=== PATIENT | female | born 1990 | race Caucasian/White ===

== ENCOUNTER → 2016-05-02 | Outpatient (CLI) | payer MEDICAID ==
[~2016-05-02] MED LIST: ALBUTEROL SULFAT3 M2 IH; ALBUTEROL-200 PUFFS/ IH; ALBUTEROL2 PUFFS/17 IN; ALBUTEROL2.5 MG/NEB IN; ALBUTEROL200 PUFFS/ IH; AMOXICOT500 MG PO; AZITHROMYCIN250 MG PO; BENZONATATE100 MG PO; CEFTIN500 MG PO; IRON TABLETS325 MG PO; KEFLEX250 M1 PO; LEVALBUTER0.63 MG/4 IH; MEDROL 4MG. DOSE4 MG PO; MOTRIN 400MG.400 MG PO; NOMEDS XX; PERCOCET1 TAB PO; PHENERGAN 25MG.25 M1 PO; PHENERGAN25 M3 PO; PREDNISONE50 MG PO; PRENATAL PLUS1 TA1 PO; PRENATAL1 TA2 PO; TAMIFLU 75MG CA75 MG PO; VENTOLIN H0.09 MG/Ac IH; XOPENEX0.63 MG/3 IH; ZITHROMAX Z-PA250 M2 PO; ZOFRAN4 MG PO
== END ==
LOC: LAB 13:13
DX: Z34.80 Encounter for supervision of other normal pregnancy, unspecified trimester (principal)

== ENCOUNTER → 2016-05-13 | Outpatient (CLI) | payer MEDICAID ==
--- NOTE | 2016-05-13 17:42 | RADIOLOGY REPORT PS360 ---
US TRANSVAGINAL PREG HISTORY: OB DATES ORDERING PHYSICIAN: Rene Ray MD PATIENT AGE: 25 years COMPARISON: None FINDINGS: An intrauterine gestational sac is present with a pole with a crown-rump length of 0.48cm correlating to gestational age of 6 weeks 2 days. Heart flicker is noted however heart rate not able to be determined. Yolk sac is noted. Small amount of cul-de-sac fluid is present. Blood flow is present both ovaries with follicles noted and a 1 cm cyst on right ovary. IMPRESSION: Live intrauterine gestation at 6 weeks 2 days as described above.
== END ==
LOC: RAD 13:09
DX: O26.841 Uterine size-date discrepancy, first trimester (principal)

== ENCOUNTER 2016-10-03 18:50 | Emergency (ER) | payer MEDICAID ==
[~2016-10-03] VITALS: Ht 147.3 cm; Wt 40.8 kg
[~2016-10-03 18:50] MED LIST changes: +PRENATA1 CTB PO; +ZITHROMAX Z PA250 MG PO
--- OUTSIDE RECORDS SUMMARY | 2016-10-03 19:00 | External Medical Summary Rpt ---
Author Author , Organization [employer] Address Unknown Phone Unavailable Care Team Providers Care Tram Operator Name Role Phone [facility] Unavailable Unavailable [facility]IES BEINEKE, BEINEKE Unavailable Unavailable BEINEKE BREEZY, BEINEKE Unavailable Unavailable BREEZY BESSON PASQUALE, BESSON Unavailable Unavailable PASQUALE SWANSON, SWANSON Unavailable Unavailable [facility] Unavailable Unavailable [facility] Unavailable Unavailable SERVICE, [facility] TOM SANTOS Unavailable Unavailable SANTOS ZACHARIAH, SANTOS Unavailable Unavailable ZACHARIAH SANTOS ZACHARIAH, SANTOS Unavailable Unavailable [facility]ACHARIAH [facility] Un[facility] Unavailable [facility] Unavailable Unavailable [facility] CHARLEY EZIO, CHARLEY Unavailable Unavailable EZIO ARTURO SUNSHINE, Unavailable Unavailable ARTURO SUNSHINE KATHERIN, T, KATHERIN, T Unavailable Unavailable BRANDON STONE PA-C Unavailable Unavailable BRANDON MONTESINOS PA-C YAMEL KOTHARI JORGE, KOTHARI JORGE Unavailable Un[facility] TOMY BOOGIE, TOMY Unavailable Unavailable BOOGIE PLAZA TORI, PLAZA Unavailable Unavailable TORI [facility] Un[facility] Unavailable INC, [facility], Unavailable Unavailable [facility] HOWARD, HOWARD Unavailable Unavailable [facility] Un[facility], [facility] CORBY BIANCA, CORBY Unavailable Unavailable BIANCA NANCY GRE, Unavailable Unavailable NANCY GRE NANCY GRE, Unavailable Unavailable HUGO HICKS, Unavailable Unavailable [facility] KIRKLAND [facility] Un[facility] PICKRONN JR, Unavailable Unavailable PICKLESIMER JR PICKLESIMER JR CHEVY, Unavailable Unavailable PICKLESIMER JR CHEVY PICKLESIMER JR CHEVY, Unavailable Unavailable PICKLESIMER JR CHEVY RENUSCH PANCHITO, RENUSCH Unavailable Unavailable [facility] Unavailable Unavailable [facility]QU[facility], [facility] JACKIE JUNE DO, Unavailable Unavailable JACKIE JUNE DO [facility] Unavailable Unavailable [facility], [facility] WALKER FOR, WALKER Unavailable Unavailable FOR [facility] Unavailable Unavailable DEPT [facility], [facility] DEPT [facility] Unavailable Unavailable DEPT [facility], [facility] DEPT [facility], [facility] Unavailable Unavailable Johan Monge Unavailable Unavailable Johan SAALZAR MD, III, MD [facility], Unavailable Unavailable [facility] LORIE ESPINOZA, Unavailable Unavailable OLRIE ESPINOZA [facility], Unavailable [facility]available [facility], Unavailable Unavailable [facility] Purpose Continuity of Care Document - 04-10-2007 through 2016 Problems Code Diagnosis DOS Provider Status Z3492 ENC 08-19-2016 [facility] UNS 2 TRIMESTER Z36 ENCOUNTER 08-19-2016 [facility] SCREENING OF MOTHER Z3A19 19 WEEKS 08-19-2016 [facility] Z3480 ENC 08-04-2016 [facility] SUPER[facility]ION PHYSICIANS OTH NORMAL GROUP PREG UNS TRIMESTER Z42971 UNSPECIFIED 06-27-2016 [facility] ED N72 INFLAMMATOR 06-27-2016 [facility] DISEASE [facility], OF CERVIX PLLC UTERI O209 HEMORRHAGE 06-27-2016 [facility] IN EARLY [facility], [facility] UNSPECIFIED I80872 INFECTIONS 06-27-2016 [facility] CERVIX IN [facility], PLLC FIRST TRIMESTER Z3A12 12 WEEKS 06-27-2016 [facility] GESTATION [facility], OF PLLC B373 CANDIDIASIS 06-14-2016 [facility] AND VAGINA Z113 ENCOUNTER 06-14-2016 [facility] SCREEN [facility] INFECTIONS SEXL MODE TRANSMISSN Z3481 ENC 06-14-2016 [facility] SUPERVISION LLC OTH NORMAL 1 TRIMESTER J101 FLU D/T OTH 06-04-2016 [facility] ID FLU [facility] VIRUS OTH INC RESP MANIFESTATI ONS Z3401 ENCOUNTER 06-04-2016 [facility] SUPRVISN [facility] NORMAL INC FIRST PREG 1 TRIMESTER X23514 UTERINE 05-13-2016 [facility] SIZE-DATE [facility] DISCREPANCY INC FIRST TRIMESTER Z3491 ENC 05-13-2016 [facility] UNS 1 TRIMESTER Z3A01 LESS THAN 8 05-13-2016 [facility] OF Z3201 ENCOUNTER 05-09-2016 [facility] FOR [facility] GROUP TEST RESULT POSITIVE H6691 OTITIS 02-27-2016 [facility]IA [facility], UNSPECIFIED PLL RIGHT EAR N926 IRREGULAR 12-15-2015 [facility] MENSTRUATIO PHYSICIANS N GROUP UNSPECIFIED G19597 ENCOUNTER 12-15-2015 [facility] INITIAL PHYSICIANS PRESCRIPTIO GROUP N OTH CONTRACEPTI VE F23138 ENCOUNTER 09-03-2015 [facility] INITIAL [facility] PRESCRIPTIO HLTH DEPT N [place] CONTRACEPT PILLS Z3202 ENCOUNTER 09-03-2015 [facility] FOR DISTRICT HLTH DEPT TEST RESULT [place] NEGATIVE G2581 RESTLESS 08-12-2015 [facility] LEGS PHYSICIANS SYNDROME GROUP G84195 MIGRAINE 08-12-2015 [facility] UNS NOT PHYSICIANS INTRACT W/O GROUP STATUS MIGRAINOSUS J309 ALLERGIC 08-12-2015 [facility] RHINITIS PHYSICIANS UNSPECIFIED GROUP Z0000 ENCOUNTER 08-12-2015 [facility] ADULT [facility] MED EXAM INC W/O ABNORMAL FIND J209 ACUTE 07-18-2015 [facility] BRONCHITIS [facility], UNSPECIFIED PLLC R05 COUGH 07-18-2015 [facility] R509 FEVER 07-18-2015 [facility] J323 CHRONIC 03-26-2015 [facility] SPHENOIDAL [facility], SINUSITIS PLLC R079 CHEST PAIN 03-26-2015 [facility] R200 ANESTHESIA 03-26-2015 [facility] R202 PARESTHESIA 03-26-2015 [facility] OF SKIN [facility], [facility] J4521 MILD 02-11-2015 [facility] INTERMITTEN PH[facility]ICIANS, T ASTHMA PLL WITH ACUTE EXACERBATIO N 6264 IRREGULAR 11-26-2014 [facility] MENSTRUAL PHYSICIANS CYCLE GROUP V2509 OTH GENERAL 11-26-2014 [facility] PHYSICIANS CNSL&ADVICE GROUP CONTRACEPT MANAGEMENT 22401 ASTHMA, 11-11-2014 [facility] INC UNSPECIFIED STATUS 9174 FOOT&TOE 11-11-2014 [facility] INSECT BITE [facility]ICIANS, PLLC NONVENOMOUS W/O MENTION INF 9175 FOOT AND 11-11-2014 [facility] TOE INSECT [facility] BITE INC NONVENOMOUS INFECTED V7240 11-05-2014 [facility] EXAMINATION [facility] /TEST INC UNCONFIRMED 3671 MYOPIA 09-04-2014 NANCY GRE 01313 ASTHMA 07-14-2014 [facility] UNSPECIFIED ASSOCIATES [place]ACERBATIO N 94860 SHORTNESS 07-05-2014 [facility] MEDICAL [facility] ASS V2549 SURVEILLANC 04-28-2014 [facility] E OTH PREV PHYSICIANS PRSC GROUP CONTRACEPT METHOD 650 NORMAL 03-19-2014 [facility] DELIVERY PHYSICIANS GROUP 86981 SECOND-DEGR 03-19-2014 [facility] EE PERINEAL [facility] LACERATION INC WITH DELIVERY V270 OUTCOME OF 03-19-2014 [facility] DELIVERY PHYSICIANS SINGLE GROUP LIVEBORN 4019 UNSPECIFIED 03-18-2014 [facility] HYPERTENSIO [place] N V221 SUPERVISION 03-17-2014 [facility] OF OTHER PHYSICIANS NORMAL GROUP 95972 THREATENED 02-25-2014 [facility] PREMATURE PHYSICIANS LABOR GROUP ANTEPARTUM 86850 POOR 02-17-2014 [facility] GROWTH MGMT PHYSICIANS MOTH GROUP ANTPRTM COND/COMP 18486 OLIGOHYDRAM 02-17-2014 [facility] NIOS, PHYSICIANS ANTEPARTUM GROUP 4660 ACUTE 01-27-2014 [place] [facility] 7242 LUMBAGO 01-27-2014 [facility] 7851 PALPITATION 01-27-2014 [facility] 7862 COUGH 01-27-2014 [facility] 77867 CHEST PAIN 01-27-2014 [facility] V222 01-27-2014 [facility] HOS[facility] INCIDENTAL INC V283 ENCOUNTER 01-01-2014 TOM SONI ROUTINE SCREEN MALFORMATIO N ULTRASONIC 51896 OTHER 10-09-2013 TOM ZACHARIAH SPECIFED COMPLICATIO N ANTEPARTUM V7242 09-26-2013 TOM SONI EXAMINATION OR TEST POSITIVE RESULT V745 SCREENING 09-26-2013 [facility] EXAMINATION [facility] FOR VENEREAL DISEASE 17775 OTHER 07-27-2013 [place] [facility] FATIGUE INC V2689 OTHER 07-24-2013 [facility] SPECIFIED DISTRICT PROCREATIVE [facility] DEPT MANAGEMENT [place] 276.51 276.51 05-18-2013 [place] DEHYDRATION [facility] 787.02 787.02 05-18-2013 [place] NAUSEA [facility] 784.0 784.0 04-02-2013 [place] HEADACHE [facility] 789.00 789.00 04-02-2013 [place] ABDOMINAL [facility] UNSPECIFIED SITE 92662 UNSPECIFIED 12-17-2011 [facility]ST[facility] N 4659 ACUTE URIS 11-18-2007 [facility] UNSPECIFIED HOSPITAL SITE 7806 FEVER & OTH 11-18-2007 [facility] EMERGENCY PHYSIOLOGIC PHYS INC DISTURBANCE S TEMP REG 54741 WHEEZING 11-18-2007 [facility] N EMERGENCY PHYS INC 462 ACUTE 08-06-2007 [facility] PHARYNGITIS MEDICAL CLINIC 81201 PAIN IN 06-14-2007 [facility] JOINT, MEDICAL SHOULDER CLINIC REGION 7291 UNSPECIFIED 06-14-2007 [facility] MYOSITIS 60650 CONTUSION 06-14-2007 [facility] MULTIPLE [facility] SITES CLINIC SHOULDER&UP PER ARM 062 MOSQUITO-PAO 04-30-2007 [facility] RNE VIRAL MEDICAL ENCEPHALITI CLINIC S 4619 ACUTE 04-30-2007 [facility] SINUSITIS, MEDICAL UNSPECIFIED CLINIC 7821 RASH AND 04-10-2007 [facility] OTHER MEDICAL NONSPECIFIC CLINIC SKIN ERUPTION 94829 PAINFUL 04-10-2007 [facility] RESPIRATION MEDICAL CLINIC Allergies, Adverse Reactions, Alerts Type Food Allergy Adverse Reaction to Substance Substance Reaction Severity Watermelon S-DIFF. BREATHING Severe Clinical Alert Notifications Alert Asthma: no influenza vaccine in the last 365 days Medications Na ND Rx Da Fi Fi Am Da Di Ph RX Ph St me C No te ll ll ou ys ag ar # ys at rm s nt no ma ic us Or Da si cy ia de te s n re d DU 00 05 06 13 30 00 RI Ac LE 08 -3 -2 .0 00 TE ti RA 57 1- 3- 00 01 ve 20 20 20 18 AI 10 60 17 17 59 D 0 1 36 PH MC AR G/ MA 5 CY MC G #3 IN 93 REYNOLDS 8 LE R ME 00 05 06 21 6 00 RI Ac TH 78 -2 -2 .0 00 TE ti YL 15 6- 3- 00 01 ve OR 02 20 20 18 AI ED 20 17 17 55 D NI 7 91 PH SO AR LO MA NE CY 4 #3 MG 93 8 DO SE PK AZ 50 05 06 6. 5 00 RI Ac IT 11 -2 -2 00 00 TE ti HR 10 6- 3- 0 01 ve OM 78 20 20 18 AI YC 76 17 17 55 D IN 6 92 PH AR 25 MA 0 CY MG #3 TA 93 BL 8 ET VE 00 05 06 18 16 00 RI Ac NT 17 -3 -2 .0 00 TE ti OL 30 0- 3- 00 01 ve IN 68 20 20 18 AI 22 17 17 59 D HF 0 11 PH A AR 90 MA CY MC G #3 IN 93 REYNOLDS 8 LE R DU 00 03 04 13 30 00 RI Ac LE 08 -3 -2 .0 00 TE ti RA 57 0- 8- 00 01 ve 20 20 20 17 AI 10 60 17 17 78 D 0 1 16 PH MC AR G/ MA 5 CY MC G #3 IN 93 REYNOLDS 8 LE R VE 00 03 04 18 16 00 RI Ac NT 17 -3 -2 .0 00 TE ti OL 30 0- 8- 00 01 ve IN 68 20 20 17 AI 22 17 17 78 D HF 0 17 PH A AR 90 MA CY MC G #3 IN 93 REYNOLDS 8 LE R AL 00 03 04 36 30 00 YO Ac BU 48 -2 -2 0. 00 UR ti TE 79 7- 1- 00 00 ve RO 50 20 20 0 03 PH L 16 17 17 14 AR MCLEOD 0 15 MA L CY 2. 5 LL MG C /[address] OR 65 03 04 14 9 00 RI Ac OM 16 -1 -0 .0 00 TE ti ET 20 5- 7- 00 01 ve REYNOLDS 74 20 20 17 AI ZI 51 17 17 54 D NE 0 53 PH AR 12 MA .5 CY MG #3 93 TA 8 BL ET OS 47 03 03 10 5 00 RI Ac EL 78 -0 -3 .0 00 TE ti TA 10 4- 1- 00 01 ve GA 47 20 20 17 AI 01 17 17 37 D R 3 42 PH PH AR OS MA CY 75 #3 MG 93 8 CA PS UL E OR 00 03 03 15 5 00 RI Ac OM 60 -0 -3 0. 00 TE ti ET 31 6- 1- 00 01 ve REYNOLDS 58 20 20 0 17 AI ZI 55 17 17 38 D NE 8 42 PH -C AR OD MA EI CY NE #3 SY 93 RU 8 P OR 00 02 03 14 10 00 RI Ac OM 60 -0 -0 .0 00 TE ti ET 35 3- 3- 00 01 ve REYNOLDS 43 20 20 16 AI ZI 82 17 17 96 D NE 1 24 PH AR 25 MA CY MG #3 TA 93 BL 8 ET DU 00 02 02 13 30 00 RI Ac LE 08 -0 -2 .0 00 TE ti RA 57 1- 4- 00 01 ve 20 20 20 16 AI 10 60 17 17 86 D 0 1 55 PH MC AR G/ MA 5 CY MC G #3 IN 93 REYNOLDS 8 LE R VE 00 12 01 18 16 00 RI Ac NT 17 -2 -2 .0 00 TE ti OL 30 8- 7- 00 01 ve IN 68 20 20 16 AI 22 16 17 42 D HF 0 87 PH A AR 90 MA CY MC G #3 IN 93 REYNOLDS 8 LE R 00 08 09 00 30 30 WI 23 No Ac 00 -2 -1 .0 LS 96 t ti 60 6- 1- 00 ON 69 Av ve 11 20 20 ai [address] la 1 UG bl e IN C 63 08 08 00 24 6 WA 69 TH Ac 30 -1 -2 .0 L- 56 OM ti 40 7- 8- 00 MA 99 ve 65 20 20 RT 8 70 08 08 II 1 PH I AR ARTURO MA HN CY H #4 93 AZ 59 08 08 00 6. 5 WI 23 No Ac IT 76 -2 -2 00 LS 90 t ti HR 23 0- 8- 0 ON 61 Av ve OM 06 20 20 ai YC [address] la IN 1 UG bl e 25 IN 0 C MG TA BL ET 17 08 08 00 17 25 WI 23 No Ac 27 -1 -2 .0 LS 82 t ti 00 2- 8- 00 ON 55 Av ve 72 20 20 ai [address] la 1 UG bl e IN C 63 08 08 00 40 20 WI 23 No Ac 82 -2 -2 .0 LS 90 t ti 40 0- 8- 00 ON 63 Av ve 00 20 20 ai [address] la 0 UG bl e IN C OR 00 08 08 00 21 6 WA 69 TH Ac ED 60 -1 -2 .0 L- 57 OM ti NI 35 2- 8- 00 MA 00 ve SO 33 20 20 RT 1 NE 71 08 08 II 5 5 PH I AR ARTURO MG MA HN CY H TA BL #4 ET 93 OR 50 08 08 00 12 4 WI 23 No Ac OM 38 -2 -2 0. LS 90 t ti ET 30 0- 8- 00 ON 64 Av ve REYNOLDS 80 20 20 0 ai ZI [address] la NE 6 UG bl -C e OD IN EI C NE SY RU P 17 05 05 00 17 25 WI 22 No Ac 27 -0 -2 .0 LS 83 t ti 00 5- 2- 00 ON 28 Av ve 72 20 20 ai [address] la 1 UG bl e IN C [place] 59 05 05 00 6. 5 WI 22 No Ac IT 76 -0 -2 00 LS 83 t ti HR 23 5- 2- 0 ON 29 Av ve OM 06 20 20 ai YC [address] mendez IN 1 UG bl e 25 IN 0 C MG TA BL ET [place] 59 01 03 00 6. 5 WI 21 No Ac IT 76 -2 -2 00 LS 75 t ti HR 23 8- 6- 0 ON 96 Av ve OM 06 20 20 ai YC [address] mendez IN 1 UG bl e 25 IN 0 C MG TA BL ET Vital Signs 05-18-2013 11:49 Name Value Interpretat Reference Comment ion Range Body 98.7 [degF] Temperature BP 58 mm[Hg] Diastolic BP Systolic 108 mm[Hg] Heart 88 /min Rate/Pulse O2% 99 % Respiratory 20 /min Rate 04-02-2013 12:37 Name Value Interpretat Reference Comment ion Range BP 70 mm[Hg] Diastolic BP Systolic 111 mm[Hg] Heart 90 /min Rate/Pulse O2% 99 % Respiratory 20 /min Rate Results Labs Lab Lab Date Result Refere Interp Status Commen Order Detail nces retati t Range on B-HCG Ur Ql (05-18-2013 11:15) B-HCG NEGATIV NEG complet Ur Ql 014 E ed 11:15 URINALYSIS/COMPLETE (05-18-2013 11:15) URINE YELLOW YELLOW complet COLOR 014 ed 11:15 URINE CLOUDY CLEAR complet APPEARA 014 ed NCE 11:15 URINE NEGATIV NEG complet GLUCOSE 014 E ed - 11:15 DIPSTIC K URINE NEGATIV NEG complet BILIRUB 014 E ed IN - 11:15 DIPSTIC K URINE NEGATIV NEG complet KETONE 014 E mg/dL ed 11:15 URINE 05-18-2 Greater 1.005-1 complet SPECIFI 014 than .030 ed C 11:15 or GRAVITY equal to 1.030 URINE NEGATIV NEG complet BLOOD 014 E ed 11:15 URINE 05-18-2 6.0 UNK 5.0-8.5 complet PH 014 ed 11:15 URINE NEGATIV NEG complet PROTEIN 014 E mg/dL ed - 11:15 DIPSTIC K URINE 05-18-2 0.2 NEG complet UROBILI 014 E.U./dL ed NOGEN - 11:15 DIPSTIC K URINE NEGATIV NEG complet NITRATE 014 E ed - 11:15 DIPSTIC K URINE TRACE NEG complet LEUK 014 ed ESTERAS 11:15 E URINE 10-20 O complet WBC 014 wbc/hpf ed 11:15 URINE 20-50 0-5 complet SQUAMOU 014 #/hpf ed S CELLS 11:15 URINE 2+ O complet BACTERI 014 ed A 11:15 B-HCG Ur Ql (04-02-2013 12:02) B-HCG NEGATIV NEG complet Ur Ql 013 E ed 12:02 URINALYSIS/COMPLETE (04-02-2013 12:02) URINE YELLOW YELLOW complet COLOR 013 ed 12:02 URINE SL CLEAR complet APPEARA 013 CLOUDY ed NCE 12:02 URINE NEGATIV NEG complet GLUCOSE 013 E ed - 12:02 DIPSTIC K URINE NEGATIV NEG complet BILIRUB 013 E ed IN - 12:02 DIPSTIC K URINE NEGATIV NEG complet KETONE 013 E mg/dL ed 12:02 URINE 1.025 1.005-1 complet SPECIFI 013 UNK .030 ed C 12:02 GRAVITY URINE NEGATIV NEG complet BLOOD 013 E ed 12:02 URINE 6.0 UNK 5.0-8.5 complet PH 013 ed 12:02 URINE NEGATIV NEG complet PROTEIN 013 E mg/dL ed - 12:02 DIPSTIC K URINE 0.2 NEG complet UROBILI 013 E.U./dL ed NOGEN - 12:02 DIPSTIC K URINE NEGATIV NEG complet NITRATE 013 E ed - 12:02 DIPSTIC K URINE 1+ NEG complet LEUK 013 ed ESTERAS 12:02 E URINE 04-02- 3-5 0 complet RBC 013 rbc/hpf ed 12:02 URINE 04-02- 10-20 O complet WBC 013 wbc/hpf ed 12:02 URINE 10-20 0-5 complet SQUAMOU 013 #/hpf ed S CELLS 12:02 URINE 2+ O complet BACTERI 013 ed A 12:02 Procedures Procedure DOS Code Location Performer Comment [place] PREG 88896 [facility] W/DETAIL INC INC GARCIA 1ST GESTATION US PREG 11433 TRAVIS [facility] UTERUS 7 MEDICAL AFTER 1ST IMAGING TRIMEST ASS GESTATION THER 02486 [facility] PROPH/DX 7 [facility] NJX IV INC INC PUSH SINGLE/1S T SBST/DRUG US PREG 64014 [facility] UTERUS 7 [facility] REAL TIME INC INC W/IMAGE DCMTN TRANSVAG GONADOTRO 55266 [facility] PIN 7 [facility] CHORIONIC INC INC QUANTITAT DIEUDONNE ADMN SET A7003 YOUR YOUR SM VOL 7 PHARMACY PHARMACY NONFILTHE [facility] PNEUMAT NEBULIZR DISPBL URNLS DIP 58644 [facility] STICK/TAB INC INC LET REAGENT AUTO MICROSCOP Y TISS JEFF 28984 [facility] SLIDE 7 [facility] SAMPS INC INC SKN/HR/NL S FNGI/ECTO PARASIT SMR PRIM 77896 [facility] SRC WET 7 [facility] MOUNT INC INC NFCT AGT CULTURE 13659 [facility] BACTERIAL 7 [facility] INC INC QUANTTATI VE COLONY COUNT URINE URINE 02719 [facility] 7 [facility] TEST INC INC VISUAL COLOR CMPRSN METHS BASIC 11040 [facility] METABOLIC 7 [facility] PANEL INC INC CALCIUM TOTAL UNCLASSIF J3490 [facility] IED DRUGS 7 [facility] INC INC CYTP C/V 42603 [facility] AUTO THIN 7 LLC ER JR LYR PREPJ SCR MNL RESCR PHYS IADNA 05485 [facility] CHLAMYDIA 7 LLC ER JR TRACHOMAT IS AMPLIFIED PROBE TQ IADNA 59946 [facility] NEISSERIA 7 LLC ER JR GONORRHOE AE AMPLIFIED PROBE TQ IAADIADOO 78890 [facility] [place]FLUENZA [place] PREG 25525 [facility] UTERUS 7 [facility] REAL TIME INC INC W/IMAGE DCMTN TRANSVAG URINE 00590 [facility] SANTOS 7 PHYSICIAN TEST S GROUP VISUAL COLOR CMPRSN METHS GONADOTRO 21070 [facility] PIN 7 [facility] CHORIONIC INC INC QUANTITAT DIEUDONNE COLLECTIO 72109 [facility] N VENOUS 7 [facility] BLOOD INC INC VENIPUNCT URE ADMN SET A7003 YOUR YOUR SM VOL 6 PHARMACY PHARMACY NONFILTR [facility] PNEUMAT NEBULIZR DISPBL ADMN SET A7003 YOUR YOUR SM VOL 6 [facility] PNEUMAT NEBULIZR DISPBL ADMN SET A7003 YOUR PLAZA SM VOL 6 PHARMACY TORI NONFIL LLC PNEUMAT NEBULIZR DISPBL ADMN SET A7003 YOUR YOUR SM VOL 6 [facility] PNEUMAT NEBULIZR DISPBL URINE 44990 [facility] TEST TH DEPT [facility] DEPT VISUAL [place] COLOR CMPRSN METHS CONTRACEP S4993 [facility] PILL[facility] FOR HLTH DEPT HLTH DEPT [place] CONTROL CONTRACEP A4267 [facility] T[facility] SUPPLY TH DEPT TH DEPT CONDOM [place] MALE EACH CONTRACEP A4269 [facility] SUPPLY TH DEPT TH DEPT SPERMICID [place] [address] [facility] THYROID 6 [facility] STIMULATI [place] [address] [facility] FREE 6 [facility] [place] [address] [facility] FOLIC 6 [facility] ACID INC INC SERUM COMPREHEN 17539 [facility] SIVE 6 [facility] METABOLIC INC INC PANEL BLOOD 03892 [facility] COUNT 6 [facility] COMPLETE INC INC AUTO&AUTO DIFRNTL WBC ADMN SET A7003 YOUR YOUR SM VOL 6 PHARMACY PHARMACY [facility] PNEUMAT NEBULIZR DISPBL CYANOCOBA 02222 [facility] BRAYDEN 6 [facility] VITAMIN INC INC B-12 NEBULIZER E0570 GIANCARLO MONDRAGON WITH 6 HOME HOME COMPRESSO MEDICAL MEDICAL R EQUIPME EQUIPME IAADI 39549 [facility] INFFLUENZ 6 [facility] A A VIRUS INC INC IAADI 24699 [facility] INFLUENZA 6 [facility] B VIRUS INC INC CUL BACT 99411 [facility] XCPT 6 [facility] URINE INC INC BLOOD/STO OL AEROBIC ISOL UNCLASSIF J3490 [facility] IED DRUGS 6 [place] [address] [facility] STREPTOCO 6 [facility] CCUS INC INC GROUP A RADIOLOGI 70527 [facility] C EXAM 6 MEDICAL CHEST 2 IMAGING VIEWS ASS FRONTAL&L ATERAL CREATINE 99808 [facility] KINASE MB 5 [facility] [place] [address] [facility] TROPONIN 5 [facility] QUANTITAT INC INC DIEUDONNE URNLS DIP 18947 [facility] 5 [facility] STICK/TAB INC INC LET REAGENT AUTO MICROSCOP Y COMPREHEN 15769 [facility] SIVE 5 [facility] METABOLIC INC INC PANEL ECG 58731 [facility] ROUTINE 5 [facility] ECG INC INC W/LEAST 12 LDS TRCG ONLY W/O I&R CREATINE 13934 [facility] KINASE [facility] TOTAL INC INC URINE 36795 [facility] TEST INC INC VISUAL COLOR CMPRSN METHS AMB [id number] [facility] SERVICE 5 [facility]ANCE AMBULANCE ALS SERVICE SERVICE [place] [address] [place] [facility] HEAD/BRAI 5 MEDICAL SUNSH[facility] N W/O IMAGING CONTRAST ASS MATERIAL BLOOD 43272 [facility] COUNT 5 [facility] COMPLETE INC INC AUTO&AUTO DIFRNTL WBC ECG 05990 [facility] ROUTINE 5 [facility] W/LEAST P 12 LDS I&R ONLY [facility]25 [facility] PER SERVICE SERVICE STATUTE MILE RADIOLOGI 98999 [place] [facility] C EXAM 5 [facility] CHEST 2 IMAGING VIEWS ASS FRONTAL&L ATERAL THER 85503 [facility] PROPH/DX 5 [facility] NJX IV INC INC PUSH SINGLE/1S T SBST/DRUG FIBRIN 73417 [facility] DGRADJ 5 [facility] PRODUCTS INC INC D-DIMER QUAL/SEMI JASPREET PRESSURIZ 17895 [facility] ED/NONPRE 5 [facility] SSURIZED INC INC INHALATIO N TREATMENT BLOOD 74004 [facility] COUNT 5 [facility] COMPLETE INC INC AUTO&AUTO DIFRNTL WBC COMPREHEN 93493 [facility] SIVE 5 [facility] METABOLIC INC INC PANEL URINE 35612 [facility] 5 PHYSICIAN [place] TEST S GROUP VISUAL COLOR CMPRSN METHS GONADOTRO 20543 [facility] PIN 5 [facility] CHORIONIC INC INC QUALITATI VE COLLECTIO 57870 [facility] [place] VENOUS 5 [facility] BLOOD INC INC VENIPUNCT URE OPHTH 70469 [facility] 5 GRE GRE XM&EVAL COMPRE NEW PT 1/> VST BASIC 49566 [facility] METABOLIC 5 [facility] PANEL INC INC CALCIUM TOTAL OBSERVATI 21263 [facility] ON CARE 5 CARE EZIO DISCHARGE ASSOCIATE S MANAGEMEN T NONINVASI 79706 [facility] VE 5 [facility] EAR/PULSE INC INC OXIMETRY SINGLE DETER PRESSURIZ 42819 [facility] ED/NONPRE 5 [facility] SSURIZED INC INC INHALATIO N TREATMENT BLOOD 81313 [facility] COUNT 5 [facility] COMPLETE INC INC AUTO&AUTO DIFRNTL WBC UNCLASSIF J3490 [facility] IED DRUGS 5 [facility] INC INC COLLECTIO 76114 [facility] V[facility] N VENOUS 5 [facility] BLOOD INC INC VENIPUNCT URE HOSPITAL G0378 [facility] OBSERVATI 5 [facility] ON INC INC SERVICE PER [facility] G0378 [facility] V[facility] OBSERVATI 5 [facility] ON INC INC SERVICE PER HOUR INITIAL 10193 [facility] [place] OBSERVATI 5 CARE EZIO ON ASSOCIATE CARE/DAY S 50 MINUTES COLLECTIO 05603 [facility] N VENOUS 5 [facility] BLOOD INC INC VENIPUNCT URE INJECTION [id number] [facility] ONDANSETR INC INC ON HCL PER 1 MG UNCLASSIF [id number] [facility] IED DRUGS 5 [facility] INC INC BLOOD 76565 [facility] COUNT 5 [facility] COMPLETE INC INC AUTO&AUTO DIFRNTL WBC CUL BACT 06587 [facility] XCPT 5 [facility] URINE INC INC BLOOD/STO OL AEROBIC ISOL PRESSURIZ 17059 [facility] ED/NONPRE 5 [facility] SSURIZED INC INC INHALATIO N TREATMENT SMR PRIM 18977 [facility] VINSON SRC 5 [facility] GRAM/GIEM INC INC SA STAIN BCT FUNGI/DHAVAL L NONINVASI 08488 [facility] VE 5 [facility] EAR/PULSE INC INC OXIMETRY SINGLE DETER THERAPEUT 70466 [facility] IC 5 [facility] INJECTION INC INC IV PUSH EACH NEW DRUG INJECTION [id number] [facility] 5 [facility] AZITHROMY INC INC MATT 500 MG BASIC 14395 [facility] VINSON METABOLIC 5 [facility] [place] [address] [facility] VINSON INFUSION 5 [facility] THERAPY/P INC INC ROPHYLAXI S /DX 1ST TO 1 HR AMB A0427 [facility] SERVICE 5 AMBULANCE AMBULANCE ALS SERVICE SERVICE EMERGENCY TRANSPORT LEVEL 1 CULTURE 00584 [facility] BACTERIAL 5 [facility] BLOOD INC INC AEROBIC W/ID ISOLATES PRESSURIZ 57317 [facility] VINSON ED/NONPRE 5 [facility] SSURIZED INC INC INHALATIO N TREATMENT BLOOD 17266 [facility] VIN[facility] COUNT 5 [facility] COMPLETE INC INC AUTO&AUTO DIFRNTL WBC GONADOTRO 92164 [facility] PIN 5 [facility] CHORIONIC INC INC QUALITATI VE UNCLASSIF J3490 [facility] V[facility] IED DRUGS 5 [facility] INC INC GROUND A0425 MALLORY TEJADA MILEAGE 5 AMBULANCE AMBULANCE PER SERVICE SERVICE STATUTE MILE RADIOLOGI 54180 [facility] C EXAM 5 MEDICAL BREEZY CHEST 2 IMAGING VIEWS ASS FRONTAL&L ATERAL COMPREHEN 18487 [facility]IN[facility] SIVE 5 [facility] METABOLIC INC INC PANEL THERAPEUT 67270 [facility] TOM IC 5 PHYSICIAN [place] PROPHYLAC S GROUP TIC/DX INJECTION SUBQ/IM VAGINAL 53909 [facility] TOM DELIVERY 4 PHYSICIAN ZACHARIA[place] ONLY S GROUP W/POSTPAR FEMI CARE REPAIR OF 7569 [facility] VINSON OTHER 4 [facility] CURRENT INC INC OBSTETRIC LACERATIO N NEURAXIAL 63694 [facility] KOTHARI JORGE LABOR 4 ANESTH ANALG/ANE OF THE S PLND BLUE VAGINAL DELIVERY CUL BACT 68294 COMBINED COMBINED XCPT 4 PHYSICIAN PHYSICIAN URINE S LA S LA BLOOD/STO OL AEROBIC ISOL 98039 [facility] TOM NONSTRESS 4 PHYSICIAN ZACHARIA[place] TEST S GROUP 21476 [facility] TOM BIOPHYSIC 4 PHYSICIAN [place] AL S GROUP PROFILE W/O NON-STRES S TESTING US PREG 90808 [facility] TOM UTERUS 4 PHYSICIAN [place] REAL TIME S GROUP F/U TRNSABDL PER FETUS DOPPLER 38072 [facility] TOM VELOCIMET 4 PHYSICIAN [place] RY S GROUP UMBILICAL ARTERY 01911 [facility] SANTOS BIOPHYSIC 4 PHYSICIAN [place]ACH[place]IA[place] AL S GROUP PROFILE W/O NON-STRES S TESTING US PREG 81541 [facility] TOM UTERUS 4 PHYSICIAN [place]ACH[place]IA[place] REAL TIME S GROUP F/U TRNSABDL PER FETUS DOPPLER 81821 [facility] TOM VELOCIMET 4 PHYSICIAN [place] RY S GROUP UMBILICAL ARTERY THERAPEUT 54369 [facility] IC 4 [facility] PROPHYLAC INC INC TIC/DX INJECTION SUBQ/IM 47250 TOM SANTOS NONSTRESS 4 ZACH[facility] ZACHARIA[facility] TEST URNLS DIP 39077 [facility] STICK/TAB INC [place] [address] [facility] VINSON INFUSION 4 [facility] THERAPY/P INC INC ROPHYLAXI S /DX 1ST TO 1 HR CULTURE 75050 [facility] JONES BACTERIAL 4 [facility] LABORATOR INC IES QUANTTATI VE COLONY COUNT URINE ECHO 18425 [facility] VINSON TTHRC R-T 4 [facility] 2D INC INC W/WOM-MOD E COMPL SPEC&COLR D PRESSURIZ 34156 [facility]SON ED/NONPRE 4 [facility] SSURIZED INC INC INHALATIO N TREATMENT RADIOLOGI 76518 [facility] C EXAM 4 [facility] CHEST 2 INC INC VIEWS FRONTAL&L ATERAL BLOOD 75992 [facility] COUNT 4 [facility] COMPLETE INC INC AUTO&AUTO DIFRNTL WBC FIBRIN 81521 [facility] DGRADJ 4 [facility] PRODUCTS INC INC D-DIMER QUAL/SEMI JASPREET COMPREHEN 92434 [facility] SIVE 4 [facility] METABOLIC INC INC PANEL US PREG 05495 TOM SANTOS UTERUS 4 [place] ZACHAR[place] AFTER 1ST TRIMEST GESTATION US PREG 67105 TOM SANTOS UTERUS 4 [place] AFTER 1ST TRIMEST GESTATION US PREG 60476 TOM SANTOS UTERUS 4 [facility] ZACH[place]IA[place] REAL TIME W/IMAGE DCMTN TRANSVAG URINE 69383 SANTOS SANTOS 4 [facility] ZACH[place] TEST VISUAL COLOR CMPRSN METHS IADNA 12340 PICKLESIM PICKLESIM NEISSERIA 4 ER JR CHEVY ER JR CHEVY GONORRHOE AE AMPLIFIED PROBE TQ CYTP C/V 14787 PICKLESIM PICKLESIM AUTO THIN 4 ER JR CHEVY ER JR CHEVY LYR PREPJ SCR MNL RESCR PHYS IADNA 56747 PICKLESIM PICKLESIM CHLAMYDIA 4 ER JR CHEVY ER JR CHEVY TRACHOMAT IS AMPLIFIED PROBE TQ URINE 85634 [facility] TEST INC INC VISUAL COLOR CMPRSN METHS URNLS DIP 94432 [facility] VINSON 4 [facility] STICK/TAB INC INC LET REAGENT AUTO MICROSCOP Y BLOOD 56749 [facility] COUNT 4 [facility] COMPLETE INC INC AUTO&AUTO DIFRNTL WBC PRESSURIZ 51905 [facility] VINSON ED/NONPRE 4 [facility] SSURIZED INC INC INHALATIO N TREATMENT THERAPEUT 80656 [facility]INSON IC 4 [facility] INJECTION INC [place] [address] [facility] VINSON INFUSION 4 [facility] THERAPY/P INC INC ROPHYLAXI S /DX 1ST TO 1 HR GONADOTRO 60387 [facility]INSON PIN 4 [facility] CHORIONIC INC INC QUANTITAT DIEUDONNE COMPREHEN 43511 [facility] VINSON SIVE 4 [facility] METABOLIC INC INC PANEL INJECTION J2405 [facility] VINSON 4 [facility] ONDANSETR INC INC ON HCL PER 1 MG CONTRACEP A4267 [facility] SUPPLY TH DEPT TH DEPT [place]DOM [place] URINE 49061 [facility] TEST TH DEPT HLTH DEPT VISUAL [place] COLOR CMPRSN METHS IAADIADOO 49854 OG ESPINOZA, 8 [facility] A Encounters Encounter Start End Date Code Location Performer Type Date HOSPITAL AL[facility]SON Becerra 7 [facility] OUTPATIEN INC T OFFICE 56994 [facility] SANTOS OUTPATIEN 7 7 PHYSICIAN T VISIT S GROUP 15 MINUTES OFFICE 22202 [facility] SANTOS OUTPATIEN 7 7 PHYSICIAN T VISIT S GROUP 15 MINUTES EMERGENCY 89569 JOSESITO HOWARD DEPT 7 7 PHYSICIAN VISIT S, [facility] HIGH SEVERITY& THREAT [facility] ALISSON - 7 7 [facility] OUTPATIEN INC T OFFICE 85396 [facility] SANTOS OUTPATIEN 7 7 PHYSICIAN T VISIT S GROUP 15 MINUTES OFFICE 67709 [facility] OUTPATIEN 7 7 [facility] T VISIT 5 INC MINUTES HOSPITAL [facility] - 7 7 [facility] OUTPATIEN INC T [facility] - 7 7 [facility] OUTPATIEN INC T OFFICE 01994 [facility] SANTOS OUTPATIEN 7 7 PHYSICIAN T VISIT S GROUP 25 MINUTES HOSPITAL [facility] - 7 7 [facility] OUTPATIEN INC T EMERGENCY 80868 [facility] 6 6 [facility] DEPARTMEN INC T VISIT LIMITED/M [facility] ALISSON - 6 6 [facility] OUTPATIEN INC T EMERGENCY 75577 JOSESITO MOLINA 6 6 PHYSICIAN PANCHITO DEPARTMEN S, [facility] T VISIT MODERATE SEVERITY OFFICE 79323 [facility] SANTOS OUTPATIEN 6 6 PHYSICIAN ZACHARIAH T VISIT S GROUP 25 MINUTES OFFICE 52235 [facility] T VISIT [facility] DEPT [facility] DEPT [address] [facility] ALISSON - 6 6 [facility] OUTPATIEN INC T OFFICE 62751 [facility] BRANDON OUTPATIEN 6 6 PHYSICIAN STONE T NEW 30 S GROUP PA-Radha YAMEL MINUTES EMERGENCY 78647 [facility] 6 6 [facility] DEPARTMEN INC T VISIT LOW/MODER SEVERITY EMERGENCY 73102 JOSESITO MOLINA 6 6 PHYSICIAN PANCHITO DOE S, [facility] T VISIT MODERATE SEVERITY HOSPITAL AL[facility] - 6 6 [facility] OUTPATIEN INC T HOSPITAL [facility] - 5 5 [facility] OUTPATIEN INC T EMERGENCY 04152 [facility] 5 [facility] T VISIT HIGH/URGE NT SEVERITY EMERGENCY 30291 JOSESITO HUITRON DEPT 5 5 PHYSICIAN BOOGIE VISIT S, [facility] HIGH SEVERITY& THREAT FUN EMERGENCY 21700 JOSESITO CLEMONS DEPT 5 5 PHYSICIAN FOR VISIT S, [facility] HIGH SEVERITY& THREAT FUNJ EMERGENCY 66830 [facility] 5 5 [facility] T VISIT MODERATE SEVERITY HOSPITAL [facility] - 5 5 [facility] OUTPATIEN [facility] T OFFICE 33491 [facility] 5 5 PHYSICIAN ZACHARIAH T VISIT S GROUP 15 MINUTES HOSPITAL AL[facility] - 5 5 [facility] OUTPATIEN [facility] T EMERGENCY 66792 [facility] 5 5 [facility] T VISIT LOW/MODER SEVERITY EMERGENCY 19375 JOSESITO TAVAREZ 5 5 PHYSICIAN BIANCA DOE S, [facility] T VISIT MODERATE SEVERITY HOSPITAL [facility] - 5 5 [facility] OUTPATIEN [facility] T OFFICE 70004 [facility] 5 5 [facility] T [facility]ISIT ASSOCIATE 15 S MINUTES EMERGENCY 22316 [facility] 5 5 [facility] T VISIT MODERATE SEVERITY HOSPITAL [facility] - 5 5 [facility] OUTPATIEN [facility] T EMERGENCY 51701 [facility] HUITRON 5 5 [facility] T VISIT P HIGH/URGE NT SEVERITY HOSPITAL [facility] - 4 4 [facility] INPATIENT INC OFFICE 81280 [facility] SANTOS OUTPATIEN 4 4 PHYSICIAN ZACHARIAH T VISIT S GROUP 15 MINUTES OFFICE 75014 [facility] SANTOS OUTPATIEN 4 4 PHYSICIAN [place]ACH[place] T VISIT S GROUP 15 MINUTES OFFICE 31796 [facility] TOM OUTPATIEN 4 4 PHYSICIAN [place]IA[place] T VISIT S GROUP 15 MINUTES OFFICE 28038 [facility] SANTOS OUTPATIEN 4 4 PHYSICIAN [place]ACH[place]IA[place] T VISIT S GROUP 15 MINUTES HOSPITAL [facility] - 4 4 [facility] OUTPATIEN INC T HOSPITAL [facility] - 4 4 [facility] OUTPATIEN INC T OFFICE 73004 TOM SANTOS OUTPATIEN 4 4 [facility] ZACHARIA[facility] T VISIT 15 MINUTES EMERGENCY 05665 [facility] 4 4 [facility] DEPARTMEN INC T VISIT LOW/MODER SEVERITY EMERGENCY 30437 [facility] DEPT 4 4 ARUN VISIT EMERGENCY HIGH PHYS SEVERITY& THREAT [facility] ALISSON - 4 4 [facility] OUTPATIEN INC T OFFICE 13457 TOM SANTOS OUTPATIEN 4 4 [facility] ZACH[facility] T VISIT 15 MINUTES OFFICE 58456 TOM SANTOS OUTPATIEN 4 4 [facility] T VISIT 25 MINUTES EMERGENCY 49808 [facility] 4 4 [facility] DEPARTMEN INC T VISIT MODERATE SEVERITY HOSPITAL [facility] - 4 4 [facility] OUTPATIEN INC T OFFICE 13424 [facility] 4 4 [facility] T [facility] 20 [facility] DEPT TH DEPT MINUTES [facility] Emergency MIKE WATKINS DO (ER) 4 11:18 4 11:50 [facility] Emergency MIKE Monge (ER) 3 12:28 3 12:38 [facility] - 3 3 [facility] INPATIENT INC EMERGENCY 20646 [facility] 2 2 [facility] T [facility]ISIT LIMITED/M [facility] ALISSON - 2 2 [facility] OUTPATIEN [facility] T OFFICE 57135 THEA PATEL 8 8 [facility] T [facility]ISIT CLINIC 25 MINUTES HOSPITAL [facility] - 8 8 [facility] T EMERGENCY 31064 [facility] 8 8 [facility] T VISIT LOW/MODER SEVERITY EMERGENCY 79552 [facility] 8 8 [facility] EMERGENCY T VISIT PHYS INC MODERATE SEVERITY OFFICE 88694 [facility] PATEL 8 8 [facility] 15 MINUTES OFFICE 25835 [facility] PATEL 8 8 [facility] 15 MINUTES OFFICE 04208 [facility] PATEL 8 8 [facility] 15 MINUTES OFFICE 61507 THEA TIM 8 8 [facility] T VISIT CLINIC 15 MINUTES
--- OUTSIDE RECORDS SUMMARY | 2016-10-03 19:00 | External Medical Summary Rpt ---
Author Author , Organization [employer] Address Unknown Phone Unavailable Care Team Providers Care Car Dispatcher Name Role Phone [facility] Unavailable Unavailable [facility] BEINEKE, BEINEKE Unavailable Unavailable [facility] BREEZY, BEINEKE Unavailable Unavailable [facility] BESSON PASQUALE, BESSON Unavailable Unavailable PASQUALE SWANSON, SWANSON Unavailable Unavailable [facility] Unavailable Unavailable [facility] Unavailable Unavailable SERVICE, [facility] TOM SANTOS Unavailable Unavailable [...] Unavailable Unavailable INC, [facility], Unavailable Unavailable [facility] HOWARD, HOWARD Unavailable Unavailable [facility] Un[facility] Unavailable [...] #493 WALK[facility] FOR, WALKER Unavailable Unavailable FOR [facility] Unavailable Unavailable DEPT [facility], [facility] DEPT [facility] Unavailable [facility]available DEPT [facility], [facility] DEPT [facility], [facility] Unavailable Unavailable Johan Monge Unavailable Unavailable Johan SALAZAR MD, III, MD [facility], Unavailable Unavailable [facility] LORIE ESPINOZA, Unavailable Unavailable LORIE ESPINOZA [facility], Unavailable Unavailable [facility], Unavailable Unavailable [facility] Purpose Continuity of Care Document - 04-10-2007 through 2016 Problems Code Diagnosis DOS Provider Status Z3492 ENC 08-19-2016 [facility] UNS 2 TRIMESTER Z36 ENCOUNTER 08-19-2016 [facility] SCREENING OF MOTHER Z3A19 19 WEEKS 08-19-2016 [facility] GESTATION [facility]ICAL OF [facility]ING ASS Z3480 ENC 08-04-2016 [facility] SUPERVISION PHYSICIANS OTH NORMAL GROUP PREG UNS TRIMESTER I43361 UNSPECIFIED 06-27-2016 [facility] ED N72 INFLAMMATOR 06-27-2016 [facility] Y DISEASE [facility], OF CERVIX PLLC UTERI O209 HEMORRHAGE 06-27-2016 [facility] IN EARLY [facility], PLLC UNSPECIFIED D10919 INFECTIONS 06-27-2016 [facility] CERVIX IN PHYSICIANS, PLLC [...] HOSP NORMAL INC FIRST PREG 1 TRIMESTER Q34203 UTERINE 05-13-2016 [facility] SIZE-DATE [facility] DISCREPANCY INC FIRST TRIMESTER Z3491 ENC 05-13-2016 [facility] UNS 1 TRIMESTER Z3A01 LESS THAN 8 05-13-2016 [facility] WEEKS [facility] GESTATION IMAGING ASS OF Z3201 ENCOUNTER 05-09-2016 [facility] FOR [facility]IANS GROUP TEST RESULT POSITIVE H6691 OTITIS 02-27-2016 [facility] MEDIA [facility], UNSPECIFIED PLL RIGHT EAR N926 IRREGULAR 12-15-2015 [facility] MENSTRUATIO PHYSICIANS N GROUP UNSPECIFIED A05288 ENCOUNTER 12-15-2015 [facility] INITIAL PHYSICIANS PRESCRIPTIO GROUP N OTH CONTRACEPTI VE X81559 ENCOUNTER 09-03-2015 [facility] IN[facility]IAL [facility] PRESCRIPTIO HLTH DEPT N [place] CONTRACEPT PILLS Z3202 ENCOUNTER 09-03-2015 [facility] FOR DISTRICT HLTH DEPT TEST RESULT [place] NEGATIVE 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 RESTLESS 08-12-2015 [facility] LEGS PHYSICIANS SYNDROME GROUP G22382 MIGRAINE 08-12-2015 [facility] UNS NOT PHYSICIANS INTRACT W/O GROUP STATUS MIGRAINOSUS J309 ALLERGIC 08-12-2015 [facility] RHINITIS PHYSICIANS UNSPECIFIED GROUP Z0000 ENCOUNTER 08-12-2015 [facility] GEN ADULT [facility] MED EXAM INC W/O ABNORMAL FIND J209 ACUTE 07-18-2015 [facility] BRONCHITIS PHYSICIANS, UNSPECIFIED PLLC R05 COUGH 07-18-2015 [facility] R509 FEVER 07-18-2015 [facility] UNSPECIFIED [facility]ICAL [facility]ING ASS J323 CHRONIC 03-26-2015 [facility] SPHENOIDAL PHYSICIANS, SINUSITIS PLLC R079 CHEST PAIN 03-26-2015 [facility] UNSPECIFIED [facility]ICIANS, [facility] R200 ANESTHESIA 03-26-2015 [facility] OF SKIN MEDICAL IM[facility] ASS R202 PARESTHESIA 03-26-2015 [facility] OF SKIN PHYSICIANS, [facility] J4521 MILD 02-11-2015 [facility] INTERMITTEN PHYSICIANS, T [facility] PLL WITH ACUTE EXACERBATIO N 6264 IRREGULAR 11-26-2014 [facility] MENSTRUAL PHYSICIANS CYCLE GROUP V2509 OTH GENERAL 11-26-2014 [facility] PHYSICIANS CNSL&ADVICE GROUP CONTRACEPT MANAGEMENT 22897 ASTHMA, 11-11-2014 [facility]PEC[facility]IED [facility] , INC UNSPECIFIED STATUS 9174 FOOT&TOE 11-11-2014 [facility] INSECT BITE PHYSICIANS, PLLC NONVENOMOUS W/O MENTION INF 9175 FOOT AND 11-11-2014 [facility] TOE INSECT [facility] BITE INC NONVENOMOUS INFECTED V7240 11-05-2014 [facility] EXAMINATION [facility] /TEST INC UNCONFIRMED 3671 MYOPIA 09-04-2014 [facility] 66870 ASTHMA 07-14-2014 [facility] UNSPECIFIED ASSOCIATES WITH EXACERBATIO N 34092 SHORTNESS 07-05-2014 [facility] MEDICAL IM[facility] ASS V2549 SURVEILLANC 04-28-2014 [facility] E OTH PREV PHYSICIANS PRSC GROUP CONTRACEPT METHOD 650 NORMAL 03-19-2014 [facility] DELIVERY PHYSICIANS GROUP 42755 SECOND-DEGR 03-19-2014 [facility] EE PERINEAL [facility] LACERATION INC WITH DELIVERY V270 OUTCOME OF 03-19-2014 [facility] DELIVERY PHYSICIANS SINGLE GROUP LIVEBORN 4019 UNSPECIFIED 03-18-2014 [facility] ESSENTIAL PHYSICIANS HYPERTENSIO LA N V221 SUPERVISION 03-17-2014 [facility] OF OTHER PHYSICIANS NORMAL GROUP 19762 THREATENED 02-25-2014 [facility] PREMATURE PHYSICIANS LABOR GROUP ANTEPARTUM 72939 POOR 02-17-2014 [facility] GROWTH MGMT PHYSICIANS MOTH GROUP ANTPRTM COND/COMP 07686 OLIGOHYDRAM 02-17-2014 [facility] NIOS, PHYSICIANS ANTEPARTUM GROUP 4660 ACUTE 01-27-2014 [facility] 7242 LUMBAGO 01-27-2014 [facility] 7851 PALPITATION 01-27-2014 [facility] 7862 COUGH 01-27-2014 [facility] 78247 CHEST PAIN 01-27-2014 [facility] V222 01-27-2014 [facility] INCIDENTAL INC V283 ENCOUNTER 01-01-2014 T[facility] SONI ROUTINE SCREEN MALFORMATIO N ULTRASONIC 53751 OTHER 10-09-2013 [facility]OM ZACHARIAH SPECIFED COMPLICATIO N ANTEPARTUM V7242 09-26-2013 [facility] S[facility]I EXAMINATION OR TEST POSITIVE RESULT V745 SCREENING 09-26-2013 [facility] EXAMIN[facility] 24082 OTHER 07-27-2013 [facility] FATIGUE INC V2689 OTHER 07-24-2013 [facility] SPECIFIED DISTRICT PROCREATIVE [facility] DEPT MANAGEMENT [place] 276.51 276.51 05-18-[address] [place] [address] [facility] 787.02 787.02 05-18-2013 [place] NAUSEA [facility] 784.0 784.0 04-02-[address] [place] [address] [facility] 789.00 789.00 04-02-2013 [place] ABDOMINAL [facility] UNSPECIFIED SITE 65873 UNSPECIFIED 12-17-2011 [facility] HOSP CONSTIPATIO INC N 4659 ACUTE URIS 11-18-2007 [facility] UNSPECIFIED HOSPITAL SITE 7806 FEVER & OTH 11-18-2007 [facility] EMERGENCY PHYSIOLOGIC PHYS INC DISTURBANCE S TEMP REG 99988 WHEEZING 11-18-2007 [facility] N EMERGENCY PHYS INC 462 ACUTE 08-06-2007 [facility] PHARYNGITIS MEDICAL CLINIC 16154 PAIN IN 06-14-2007 [facility] JOINT, MEDICAL SHOULDER CLINIC REGION 7291 UNSPECIFIED 06-14-2007 [facility] MYOSIT[facility] 96025 CONTUSION 06-14-2007 [facility] MULTIPLE [facility] SITES CLINIC SHOULDER&UP PER ARM 062 MOSQUITO-PAO 04-30-2007 [facility] RNE VIRAL MEDICAL ENCEPHALITI CLINIC S 4619 ACUTE 04-30-2007 [facility] SINUSITIS, MEDICAL UNSPECIFIED CLINIC 7821 RASH AND 04-10-2007 [facility] OTHER MEDICAL NONSPECIFIC CLINIC SKIN ERUPTION 23763 PAINFUL 04-10-2007 [facility] RESPIRATION MEDICAL CLINIC Allergies, Adverse Reactions, [...] YL 15 6- 3- 00 01 ve TN 02 20 20 18 AI ED 20 [...] 5 CY MC G #3 IN 93 RENYOLDS 8 LE R VE 00 03 04 [...] LL MG C /[address] TN 65 03 04 14 9 00 RI [...] TA 10 4- 1- 00 01 ve NC 47 20 20 17 AI 01 17 17 37 D R 3 42 PH PH AR OS MA CY 75 #3 MG 93 8 CA PS UL E TN 00 03 03 15 5 00 RI Ac OM 60 -0 -3 0. 00 TE ti ET 31 6- 1- 00 01 ve REYNOLDS 58 20 20 0 17 AI ZI 55 17 17 38 D NE 8 42 PH -C AR OD MA EI CY NE #3 SY 93 RU 8 P TN 00 02 03 14 10 00 RI [...] la [address] U[address] e IN C TN 00 08 08 00 21 6 WA 69 TH Ac ED 60 -1 -2 .0 L- 57 OM ti NI 35 2- 8- 00 MA 00 ve SO 33 20 20 RT 1 NE 71 08 08 II 5 5 PH I AR ARTURO MG MA HN CY H TA BL #4 ET 93 TN 50 08 08 00 12 4 WI [...] DOS Code [place] Performer [place] P[place] 51387 [facility] UTERUS 7 [facility] W/DETAIL INC INC GARCIA 1ST GESTATION US PREG 93562 TRAVIS [facility] UTERUS 7 MEDICAL AFTER 1ST IMAGING TRIMEST ASS GESTATION THER 78873 [facility] PROPH/DX 7 [facility] NJX IV INC INC PUSH SINGLE/1S T SBST/DRUG US PREG 84738 [facility] UTERUS 7 [facility] REAL TIME INC INC W/IMAGE DCMTN TRANSVAG GONADOTRO 99297 [facility] PIN 7 [facility] CHORIONIC INC INC QUANTITAT DIEUDONNE ADMN SET A7003 YOUR [facility] SM [facility] 7 [facility]AC[facility] NEBULIZR DISPBL URNLS DIP 31066 [facility] 7 [facility] STICK/TAB INC INC LET REAGENT AUTO MICROSCOP Y TISS JEFF 07351 [facility] SLIDE 7 [facility] SAMPS INC INC SKN/HR/NL S FNGI/ECTO PARASIT SMR PRIM 56333 [facility] SRC WET 7 [facility] MOUNT INC INC NFCT AGT CULTURE 40564 [facility] BACTERIAL 7 [facility] INC INC QUANTTATI VE COLONY COUNT URINE URINE 30336 [facility] 7 [facility] TEST INC INC VISUAL COLOR CMPRSN METHS BASIC 10231 [facility] METABOLIC 7 [facility] PANEL INC INC CALCIUM TOTAL UNCLASSIF J3490 [facility] IED DRUGS 7 [facility] INC INC CYTP C/V 88986 [facility] AUTO THIN 7 LLC ER JR LYR PREPJ SCR MNL RESCR PHYS IADNA 54649 [facility] CHLAMYDIA 7 LLC ER JR TRACHOMAT IS AMPLIFIED PROBE TQ IADNA 22920 [facility], [facility] NEISSERIA 7 LLC ER JR GONORRHOE AE AMPLIFIED PROBE TQ IAADIADOO 37973 [facility] INFLUENZA [place] PREG 44624 [facility] UTERUS 7 [facility] REAL TIME INC INC W/IMAGE DCMTN TRANSVAG URINE 81949 [facility] SANTOS 7 PHYSICIAN TEST S GROUP VISUAL COLOR CMPRSN METHS GONADOTRO 36516 [facility] PIN 7 [facility] CHORIONIC INC INC QUANTITAT DIEUDONNE COLLECTIO 23027 [facility] N VENOUS 7 [facility] BLOOD INC INC VENIPUNCT URE ADMN SET A7003 YOUR YOUR SM VOL 6 PHARMACY PHARMACY NONFILTR [facility] PNEUMAT NEBULIZR DISPBL ADMN SET A7003 [facility]AT NEBULIZR DISPBL ADMN SET A7003 YOUR PLAZA SM VOL 6 PHARMACY TORI NONFIL LLC PNEUMAT NEBULIZR DISPBL ADMN SET A7003 YOUR YOUR SM [facility] 6 [facility] PNEUMAT NEBULIZR DISPBL URINE 39691 [facility] TEST TH DEPT [facility] DEPT VISUAL [place] COLOR CMPRSN METHS CONTRACEP S4993 [facility] DE[facility]TH DEPT [place] CONTROL CONTRACEP A4267 [facility] SUPPLY TH DEPT TH DEPT CONDOM [place] MALE EACH CONTRACEP A4269 [facility] SUPPLY TH DEPT TH DEPT SPERMICID [place] [address] [facility] THYROID 6 [facility] STIMULATI [place] [address] [facility] IVNSON FREE 6 [facility] [place] [address] [facility] FOLIC 6 [facility] ACID INC INC SERUM COMPREHEN 66901 [facility] SIVE 6 [facility] METABOLIC INC INC PANEL BLOOD 68674 [facility] COUNT 6 [facility] COMPLETE INC INC AUTO&AUTO DIFRNTL WBC ADMN SET A7003 YOUR YOUR SM VOL 6 PHARMACY PHARMACY [facility] PNEUMAT NEBULIZR DISPBL CYANOCOBA 09833 [facility] BRAYDEN 6 [facility] VITAMIN INC INC B-12 NEBULIZER E0570 GIANCARLO MONDRAGON WITH 6 HOME HOME COMPRESSO MEDICAL MEDICAL R EQUIPME EQUIPME IAADI 85110 [facility] INFFLUENZ 6 [facility] A A VIRUS INC INC IAADI 84610 [facility] INFLUENZA 6 [facility] B VIRUS INC INC CUL BACT 04563 [facility] XCPT 6 [facility] URINE INC INC BLOOD/STO OL AEROBIC ISOL UNCLASSIF J3490 [facility] IED DRUGS 6 [place] [address] [facility] STREPTOCO 6 [facility] CCUS INC INC GROUP A RADIOLOGI 50347 [facility] C EXAM 6 MEDICAL CHEST 2 IMAGING VIEWS ASS FRONTAL&L ATERAL CREATINE 21484 [facility] KINASE MB 5 [facility] [place] [address] [facility] TROPONIN 5 [facility] QUANTITAT INC INC DIEUDONNE URNLS DIP 06566 [facility] 5 [facility] STICK/TAB INC INC LET REAGENT AUTO MICROSCOP Y COMPREHEN 18364 [facility] SIVE 5 [facility] METABOLIC INC INC PANEL ECG 18283 [facility] ROUTINE 5 [facility] ECG INC INC W/LEAST 12 LDS TRCG ONLY W/O I&R CREATINE 74137 [facility] KINASE 5 [facility] TOTAL INC INC URINE 29398 [facility] 5 [facility] TEST INC INC VISUAL COLOR CMPRSN METHS AMB A0427 [facility] SERVICE 5 AMBULANCE AMBULANCE ALS SERVICE SERV[place] [address] [facility] HEAD/BRAI 5 MEDICAL SUNSHINE N W/O IMAGING CONTRAST ASS MATERIAL BLOOD 30608 [facility] COUNT 5 [facility] COMPLETE INC INC AUTO&AUTO DIFRNTL WBC ECG 12798 [facility] RICH ROUTINE 5 [facility] W/LEAST P 12 LDS I&R ONLY GROUND A0425 [facility] AMBULANCE PER SERVICE SERVICE STATUTE MILE RADIOLOGI 23142 [facility] C EXAM 5 MEDICAL SUNSHINE CHEST 2 IMAGING VIEWS ASS FRONTAL&L ATERAL THER 98624 [facility] PROPH/DX 5 [facility] NJX IV INC INC PUSH SINGLE/1S T SBST/DRUG FIBRIN 10379 [facility] DGRADJ 5 [facility] PRODUCTS INC INC D-DIMER QUAL/SEMI JASPREET PRESSURIZ 56699 [facility] ED/NONPRE 5 [facility] SSURIZED INC INC INHALATIO N TREATMENT BLOOD 19358 [facility] COUNT 5 [facility] COMPLETE INC INC AUTO&AUTO DIFRNTL WBC COMPREHEN 04693 [facility] SIVE 5 [facility] METABOLIC INC INC PANEL URINE 41108 [facility] ZACHARIAH TEST S GROUP VISUAL COLOR CMPRSN METHS GONADOTRO 75398 [facility] PIN 5 [facility] CHORIONIC INC INC QUALITATI VE COLLECTIO 79194 [facility] [place] VENOUS 5 [facility] BLOOD INC INC VENIPUNCT URE OPHTH 02038 [facility] 5 GRE GRE XM&EVAL COMPRE NEW PT 1/> VST BASIC 67307 [facility] METABOLIC 5 [facility] PANEL INC INC CALCIUM TOTAL OBSERVATI 31700 [facility] CHARLEY ON CARE 5 CARE EZIO DISCHARGE ASSOCIATE S MANAGEMEN T NONINVASI 35460 [facility] VE 5 [facility] EAR/PULSE INC INC OXIMETRY SINGLE DETER PRESSURIZ 75883 [facility] ED/NONPRE 5 [facility] SSURIZED INC INC INHALATIO N TREATMENT BLOOD 26355 [facility] COUNT 5 [facility] COMPLETE INC INC AUTO&AUTO DIFRNTL WBC UNCLASSIF J3490 [facility] IED DRUGS 5 [facility] INC INC COLLECTIO 79057 [facility] V[facility] N VENOUS 5 [facility] BLOOD INC INC VENIPUNCT URE HOSPITAL G0378 [facility] OBSERVATI 5 [facility] ON INC INC SERVICE [facility] G0378 [facility] OBSERVATI 5 [facility] ON INC INC SERVICE PER HOUR INITIAL 39885 [facility] [place] OBSERVATI 5 CARE EZIO ON ASSOCIATE CARE/DAY S 50 MINUTES COLLECTIO 25400 [facility] N VENOUS 5 [facility] BLOOD INC INC VENIPUNCT URE INJECTION J2405 [facility] 5 [facility] ONDANSETR INC INC ON HCL PER 1 MG UNCLASSIF J3490 [facility] IED DRUGS 5 [facility] INC INC BLOOD 46167 [facility] COUNT 5 [facility] COMPLETE INC INC AUTO&AUTO DIFRNTL WBC CUL BACT 79648 [facility] XCPT 5 [facility] URINE INC INC BLOOD/STO OL AEROBIC ISOL PRESSURIZ 57636 [facility] ED/NONPRE 5 [facility] SSURIZED INC INC INHALATIO N TREATMENT SMR PRIM 64928 [facility] SRC 5 [facility] GRAM/GIEM INC INC SA STAIN BCT FUNGI/DHAVAL L NONINVASI 56010 [facility] VE 5 [facility] EAR/PULSE INC INC OXIMETRY SINGLE DETER THERAPEUT 42346 [facility] IC 5 [facility] INJECTION INC INC IV PUSH EACH NEW DRUG INJECTION J0456 [facility] 5 [facility] AZITHROMY INC INC MATT 500 MG BASIC 90288 [facility] METABOLIC 5 [facility] [place] [address] [facility] INFUSION 5 [facility] THERAPY/P INC INC ROPHYLAXI S /DX 1ST TO 1 HR AMB A0427 [facility] SERVICE 5 AMBULANCE AMBULANCE ALS SERVICE SERVICE EMERGENCY TRANSPORT LEVEL 1 CULTURE 84415 [facility] BACTERIAL 5 [facility] BLOOD INC INC AEROBIC W/ID ISOLATES PRESSURIZ 91638 [facility] ED/NONPRE 5 [facility] SSURIZED INC INC INHALATIO N TREATMENT BLOOD 22765 [facility] COUNT 5 [facility] COMPLETE INC INC AUTO&AUTO DIFRNTL WBC GONADOTRO 94668 [facility] PIN 5 [facility] CHORIONIC INC INC QUALITATI VE UNCLASSIF J3490 [facility] IED DRUGS 5 [facility] INC INC GROUND A0425 [facility] MILEAGE 5 AMBULANCE AMBULANCE PER SERVICE SERVICE STATUTE MILE RADIOLOGI 70839 [facility] C EXAM 5 MEDICAL BREEZY CHEST 2 IMAGING VIEWS ASS FRONTAL&L ATERAL COMPREHEN 02050 [facility] SIVE 5 [facility] METABOLIC INC INC PANEL THERAPEUT 54719 [facility] TOM IC 5 PHYSICIAN ZACHARIAH PROPHYLAC S GROUP TIC/DX INJECTION SUBQ/IM VAGINAL 88279 [facility] TOM DELIVERY 4 PHYSICIAN ZACHARIAH ONLY S GROUP W/POSTPAR FEMI CARE REPAIR OF 7569 [facility] OTHER 4 [facility] CURRENT INC INC OBSTETRIC LACERATIO N NEURAXIAL 50648 [facility] KOTHARI JORGE LABOR 4 ANESTH ANALG/ANE OF THE S PLND BLUE VAGINAL DELIVERY CUL BACT 62371 [facility] COMBINED XCPT 4 PHYSICIAN PHYSICIAN URINE S LA S LA BLOOD/STO OL AEROBIC ISOL 72783 [facility] TOM NONSTRESS 4 PHYSICIAN ZACHARIAH TEST S GROUP 59124 [facility] TOM BIOPHYSIC 4 PHYSICIAN ZACHARIAH AL S GROUP PROFILE W/O NON-STRES S TESTING US PREG 05194 [facility] TOM UTERUS 4 PHYSICIAN ZACHARIAH REAL TIME S GROUP F/U TRNSABDL PER FETUS DOPPLER 67249 [facility] TOM VELOCIMET 4 PHYSICIAN ZACHARIAH RY S GROUP UMBILICAL ARTERY 96840 [facility] BIOPHYSIC 4 PHYSICIAN ZACHARIAH AL S GROUP PROFILE W/O NON-STRES S TESTING US PREG 93542 [facility] TOM UTERUS 4 PHYSICIAN ZACHARIAH REAL TIME S GROUP F/U TRNSABDL PER FETUS DOPPLER 90888 [facility] TOM VELOCIMET 4 PHYSICIAN ZACHARIAH RY S GROUP UMBILICAL ARTERY THERAPEUT 59649 [facility] IC 4 [facility] PROPHYLAC INC INC TIC/DX INJECTION SUBQ/IM 17789 [facility]OS NONSTRESS 4 ZACHARIAH ZACHARIAH TEST URNLS DIP 74249 [facility] 4 [facility] STICK/TAB INC [place] [address] [facility] INFUSION 4 [facility] THERAPY/P INC INC ROPHYLAXI S /DX 1ST TO 1 HR CULTURE 08859 [facility] JONES BACTERIAL 4 [facility] LABORATOR INC IES QUANTTATI VE COLONY COUNT URINE ECHO 85095 [facility] TTHRC R-T 4 [facility] 2D INC INC W/WOM-MOD E COMPL SPEC&COLR D PRESSURIZ 59541 [facility] ED/NONPRE 4 [facility] SSURIZED INC INC INHALATIO N TREATMENT RADIOLOGI 10500 [facility] C EXAM 4 [facility] CHEST 2 INC INC VIEWS FRONTAL&L ATERAL BLOOD 30965 [facility] COUNT 4 [facility] COMPLETE INC INC AUTO&AUTO DIFRNTL WBC FIBRIN 74295 [facility] DGRADJ 4 [facility] PRODUCTS INC INC D-DIMER QUAL/SEMI JASPREET COMPREHEN 11830 [facility] SIVE 4 [facility] METABOLIC INC INC PANEL US PREG 26666 [facility] UTERUS 4 [facility] AFTER 1ST TRIMEST GESTATION US PREG 32043 [facility] UTERUS 4 [facility] [place] AFTER 1ST TRIMEST GESTATION US PREG 89712 [facility]OM [facility] UTERUS 4 [facility] REAL TIME W/IMAGE DCMTN TRANSVAG URINE 46947 [facility] SANTOS 4 [facility] TEST VISUAL COLOR CMPRSN METHS IADNA 51903 PICKLESIM PICKLESIM NEISSERIA 4 ER JR CHEVY ER JR CHEVY GONORRHOE AE AMPLIFIED PROBE TQ CYTP C/V 91415 PICK[facility]IM PICKLESIM AUTO THIN 4 ER JR CHEVY ER JR CHEVY LYR PREPJ SCR MNL RESCR PHYS IADNA 28667 P[facility]IM PICKLESIM CHLAMYDIA 4 ER JR CHEVY ER JR CHEVY TRACHOMAT IS AMPLIFIED PROBE TQ URINE 60230 [facility] TEST INC INC VISUAL COLOR CMPRSN METHS URNLS DIP 84268 [facility] 4 [facility] STICK/TAB INC INC LET REAGENT AUTO MICROSCOP Y BLOOD 47627 [facility] COUNT 4 [facility] COMPLETE INC INC AUTO&AUTO DIFRNTL WBC PRESSURIZ 89423 [facility] ED/NONPRE 4 [facility] SSURIZED INC INC INHALATIO N TREATMENT THERAPEUT 78983 [facility] IC 4 [facility] INJECTION [place] [address] [facility] INFUSION 4 [facility] THERAPY/P INC INC ROPHYLAXI S /DX 1ST TO 1 HR GONADOTRO 47331 [facility] PIN 4 [facility] CHORIONIC INC INC QUANTITAT DIEUDONNE COMPREHEN 45289 [facility] SIVE 4 [facility] METABOLIC INC INC PANEL INJECTION J2405 [facility] 4 [facility] ONDANSETR INC INC ON HCL PER 1 MG CONTRACEP A4267 [facility] SUPPLY TH DEPT TH DEPT CONDOM [place] [facility] EACH URINE 55546 [facility] TEST TH DEPT HLTH DEPT VISUAL [place] COLOR CMPRSN METHS IAADIADOO 66986 [facility] ESPINO[facility], [facility] A Encounters Encounter Start End Date Code Location Performer Type Date HOSPITAL [facility] Becerra 7 [facility] OUTPATIEN INC T OFFICE 69732 [facility] OUTPATIEN 7 7 PHYSICIAN T VISIT S GROUP 15 MINUTES OFFICE 93207 [facility] OUTPATIEN 7 7 PHYSICIAN T VISIT S GROUP 15 MINUTES EMERGENCY 14787 [facility] HOW[facility] DEPT 7 7 PHYSICIAN VISIT S, [facility] HIGH SEVERITY& THREAT [facility] - 7 7 [facility] OUTPATIEN INC T OFFICE 83136 [facility] OUTPATIEN 7 7 PHYSICIAN T VISIT S GROUP 15 MINUTES OFFICE 95413 [facility] 7 7 [facility] T VISIT 5 INC MINUTES [facility] - 7 7 [facility] T [facility] - 7 7 [facility] OUTPATIEN INC T OFFICE 90686 [facility] OUTPATIEN 7 7 PHYSICIAN T VISIT S GROUP 25 MINUTES [facility]OSPITAL [facility] - 7 7 [facility] OUTPATIEN INC T EMERGENCY 03291 [facility] 6 6 [facility] DEPARTMEN INC T VISIT LIMITED/M [facility] - 6 6 [facility] OUTPATIEN INC T EMERGENCY 18676 JOSESITO MOLINA 6 6 PHYSICIAN PANCHITO DEPARTMEN S, [facility] T VISIT MODERATE SEVERITY OFFICE 57350 [facility] OUTPATIEN 6 6 PHYSICIAN [place] T VISIT S GROUP 25 MINUTES OFFICE [id number] [facility] T VISIT [facility] DEPT [facility] DEPT 10 [place] [facility] - 6 6 [facility] INC T OFFICE 81293 [facility] BRANDON OUTPATIEN 6 6 PHYSICIAN STONE T NEW 30 S GROUP PA-Radha YAMEL MINUTES EMERGENCY [id number] [facility] 6 6 [facility] DEPART[facility] T VISIT LOW/MODER SEVERITY EMERGENCY 90190 JOSESITO MOLINA 6 6 PHYSICIAN PANCHITO DOE S, [facility] T VISIT MODERATE SEVERITY [facility] - 6 6 [facility] OUTPATIEN INC T [facility]OSPITAL [facility] - 5 5 [facility] OUTPATIEN INC T EMERGENCY 45613 [facility] T VISIT HIGH/URGE NT SEVERITY EMERGENCY 13118 JOSESITO HUITRON DEPT 5 5 PHYSICIAN BOOGIE VISIT S, [facility] HIGH SEVERITY& THREAT FUN EMERGENCY 68425 JOSESITO CLEMONS DEPT 5 5 PHYSICIAN FOR VISIT S, [facility] HIGH SEVERITY& THREAT FUNJ EMERGENCY 99417 [facility] 5 5 [facility] T VISIT MODERATE SEVERITY [facility] - 5 5 [facility] OUTPATIEN [facility] T OFFICE 74728 [facility] 5 5 PHYSICIAN [place] T VISIT S GROUP 15 MINUTES HOSPITAL [facility] - 5 5 [facility] OUTPATIEN [facility] T EMERGENCY 11614 [facility] 5 5 [facility] T VISIT LOW/MODER SEVERITY EMERGENCY 42870 JOSESITO TAVAREZ 5 5 PHYSICIAN BIANCA DOE S, [facility] T VISIT MODERATE SEVERITY [facility] - 5 5 [facility] OUTPATIEN [facility] T OFFICE 22395 [facility] 5 5 [facility] T [facility]ISIT ASSOCIATE 15 S MINUT[facility] EMERGENCY 52543 [facility] 5 [facility] MODERATE SEVERITY [facility] - 5 5 [facility] OUTPATIEN [facility] T EMERGENCY 82884 [facility] HUITRON 5 5 [facility] T VISIT P HIGH/URGE NT SEVERITY [facility]OSPITAL [facility] - 4 4 [facility]IENT INC OFFICE 61504 [facility]OS OUTPATIEN 4 4 PHYSICIAN [place] T VISIT S GROUP 15 MINUTES OFFICE 23480 [facility] OUTPATIEN 4 4 PHYSICIAN [place] T VISIT S GROUP 15 MINUTES OFFICE 08014 [facility] TOM OUTPATIEN 4 4 PHYSICIAN [place] T VISIT S GROUP 15 MINUTES OFFICE 86047 [facility] OUTPATIEN 4 4 PHYSICIAN [place] T VISIT S GROUP 15 MINUTES [facility]OSP[facility] - 4 4 [facility] T [facility] - 4 4 [facility] INC T OFFICE 78993 [facility] OUTPATIEN 4 4 [place] T VISIT 15 MINUTES EMERGENCY 20433 [facility] 4 4 [facility] DEPARTMEN INC T VISIT LOW/MODER SEVERITY EMERGENCY 72599 [facility] DEPT 4 4 [facility] VISIT EMERGENCY HIGH PHYS SEVERITY& THREAT [facility] - 4 4 [facility] OUTPATIEN INC T OFFICE 76165 [facility] OUTPATI[facility] 4 4 [place] T VISIT 15 MINUTES OFFICE 81187 [facility] OUT[facility] 4 4 [place] T VISIT 25 MINUTES EMERGENCY 34422 [facility] 4 4 [facility] DEPARTMEN INC T VISIT MODERATE SEVERITY [facility]OSPITAL [facility] - 4 4 [facility] OUTPATI[facility] INC T OFFICE 35205 [facility] [address] [facility] T [facility] 20 [facility] DEPT TH DEPT MINUTES [facility] Emergency MIKE WATKINS DO (ER) 4 11:18 4 11:50 [facility] MIKE Monge (ER) 3 12:28 3 12:38 [facility] - 3 3 [facility] INPATIENT INC EMERGENCY 96631 [facility] 2 2 [facility] [place] 2[place] T VISIT LIMITED/M [facility] - 2 2 [facility] OUTPATIEN [facility] T OFFICE 83527 THEA PATEL 8 8 [facility] T VISIT CLINIC 25 MINUTES [facility] [place] - 8 8 [facility] T EMERGENCY 20904 [place] 8 8 [facility] [place] [place] T VISIT LOW/MODER SEVERITY EMERGENCY 84802 [facility] [address] [facility] EMERGENCY T VISIT PHYS INC MODERATE SEVERITY OFFICE 59857 THEA PATEL 8 8 [facility] 15 MINUTES OFFICE 86503 [facility] PAT[facility] 8 8 [facility]IC 15 MINUTES OFFICE 72981 [facility] 8 8 [facility] 15 MINUTES OFFICE 78049 [facility] TIM 8 8 [facility] T VISIT CLINIC 15 MINUTES
--- OUTSIDE RECORDS SUMMARY | 2016-10-03 19:03 | External Medical Summary Rpt ---
Demographics Preferred Language Upper Sorbian Marital Status Unknown Yazidism Affiliation Unknown Race Unknown Ethnic Group Unknown Author Author , Organization [employer] Address Unknown Phone Unavailable Purpose Continuity of Care Document - through 2016 Immunization No patient found.
--- OUTSIDE RECORDS SUMMARY | 2016-10-03 19:03 | External Medical Summary Rpt ---
Author Author , Organization [employer] Address Unknown Phone Unavailable Care Team Providers Care Numerical Tool Programmer Name Role Phone [facility] Unavailable Unavailable [facility] BEINEKE, BEINEKE Unavailable Unavailable BEINEKE BREEZY, BEINEKE Unavailable Unavailable BREEZY BESSON PASQUALE, BESSON Unavailable Unavailable PASQUALE SWANSON, SWANSON Unavailable Unavailable [facility] Unavailable Unavailable [facility] Unavailable Unavailable SERVICE, [facility] SANTOS, SANTOS Unavailable Unavailable SANTOS ZACHARIAH, SANTOS Unavailable Unavailable ZACHARIAH SANTOS ZACHARIAH, SANTOS Unavailable Unavailable [facility] Un[facility] Unavailable [facility] Unavailable Unavailable [facility] CHARLEY HOLGUIN, CHARLEY Unavailable Unavailable EZIO PANDEY, T, KATHERIN, T Unavailable Unavailable BRANDON STONE PA-C Unavailable Unavailable YAMELBRANDON PA-C YAMEL KOTHARI JORGE, KOTHARI JORGE Unavailable Unavailable [facility] TOMY BOOGIE, TOMY Unavailable Unavailable BOOGIE PLAZA TORI, PLAZA Unavailable Unavailable TORI [facility] Un[facility], [facility], Unavailable Unavailable [facility] Unavailable Unavailable [facility], [facility] Un[facility], [facility] JACQUES PASQUALE, JACQUES PASQUALE Unavailable Unavailable CORBY BIANCA, CORBY Unavailable Unavailable BIANCA NANCY GRE, Unavailable Unavailable NANCY GRE NANCY GRE, Unavailable Unavailable [facility] HICKS, Unavailable Unavailable [facility] Un[facility], Unavailable Unavailable PLL[facility], [facility] PICKLESIMER JR, Unavailable Unavailable PICKLESIMER JR PICKLESIMER JR CHEVY, Unavailable Unavailable PICKLESIMER JR CHEVY PICKLESIMER JR CHEVY, Unavailable Unavailable PICKLESIMER JR CHEVY RENUSCH PANCHITO, RENUSCH Unavailable Unavailable PANCHITO [facility] Unavailable Unavailable [facility], [facility] Unavailable [facility]available [facility], [facility] WALKER FOR, WALKER Unavailable Unavailable FOR [facility] Unavailable Unavailable DEPT [facility] DE[facility] [place] [facility] Unavailable Unavailable DEPT [facility] DEPT [facility] Unavailable Unavailable [facility], Unavailable Unavailable [facility] LORIE ESPINOZA R, Unavailable Unavailable LORIE ESPINOZA R [facility], Unavailable [facility]available [facility], Unavailable Unavailable [facility] Purpose Continuity of Care Document - 04-10-2007 through 2016 Problems Code Diagnosis DOS Provider Status Z3492 ENC 08-19-2016 [facility] UNS 2 TRIMESTER Z36 ENCOUNTER 08-19-2016 [facility] SCREENING OF MOTHER Z3A19 19 WEEKS 08-19-2016 [facility] MEDICAL OF IMAGING ASS Z3480 ENC 08-04-2016 [facility] SUPERVISION PHYSICIANS OTH NORMAL GROUP PREG UNS TRIMESTER [id number] UNSPECIFIED 06-27-2016 [facility] ED N72 INFLAMMATOR 06-27-2016 [facility] DISEASE [facility], OF CERVIX PLLC UTERI O209 HEMORRHAGE 06-27-2016 [facility] IN EARLY [facility], [facility]C UNSPECIFIED [id number] INFECTIONS 06-27-2016 [facility] CERVIX IN [facility], PLLC [...] HOSP NORMAL INC FIRST PREG 1 TRIMESTER T27802 UTERINE 05-13-2016 [facility] SIZE-DATE [facility] DISCREPANCY INC FIRST TRIMESTER Z3491 ENC 05-13-2016 [facility] UNS 1 TRIMESTER Z3A01 LESS THAN 8 05-13-2016 [facility] MEDICAL GESTATION IMAGING ASS OF Z3201 ENCOUNTER 05-09-2016 [facility] FOR PHYSICIANS GROUP TEST RESULT POSITIVE H6691 OTITIS 02-27-2016 [facility], UNSPECIFIED PLLC RIGHT EAR N926 IRREGULAR 12-15-2015 [facility] MENSTRUATIO PHYSICIANS N GROUP UNSPECIFIED J34549 ENCOUNTER 12-15-2015 [facility] INITIAL PHYSICIANS PRESCRIPTIO GROUP N OTH CONTRACEPTI VE H78714 ENCOUNTER 09-03-2015 [facility] DEPT N [place] CONTRACEPT PILLS Z3202 ENCOUNTER 09-03-2015 [facility] DEPT TEST RESULT [place] NEGATIVE G2581 RESTLESS 08-12-2015 [facility] LEGS PHYSICIANS SYNDROME GROUP S65834 MIGRAINE 08-12-2015 [facility] UNS NOT PHYSICIANS INTRACT W/O GROUP STATUS MIGRAINOSUS J309 ALLERGIC 08-12-2015 [facility] RHINITIS PHYSICIANS UNSPECIFIED GROUP Z0000 ENCOUNTER 08-12-2015 [facility] GEN ADULT [facility] MED EXAM INC W/O ABNORMAL FIND J209 ACUTE 07-18-2015 [facility] BRONCHITIS PHYSICIANS, UNSPECIFIED [facility] R05 COUGH 07-18-2015 [facility] R509 FEVER 07-18-2015 [facility] J323 CHRONIC 03-26-2015 [facility] SPHENOIDAL [facility]IANS, SINUSITIS PLL R079 CHEST PAIN 03-26-2015 [facility] UNSPECIFIED PHYSICIANS, [facility] R200 ANESTHESIA 03-26-2015 [facility] OF SKIN [facility]ICAL [facility] R202 PARESTHESIA 03-26-2015 [facility] OF SKIN PHYSICIANS, [facility] J4521 MILD 02-11-2015 [facility] INTERMITTEN PHYSICIANS, T ASTHMA [facility] WITH ACUTE EXACERBATIO N 6264 IRREGULAR 11-26-2014 [facility] MENSTRUAL PHYSICIANS CYCLE GROUP V2509 OTH GENERAL 11-26-2014 [facility] PHYSICIANS CNSL&ADVICE GROUP CONTRACEPT MANAGEMENT 67856 ASTHMA, 11-11-2014 [facility]NSPECIFIED [facility] , INC UNSPECIFIED STATUS 9174 FOOT&TOE 11-11-2014 [facility] INSECT BITE PHYSICIANS, [facility] NONVENOMOUS W/O MENTION INF 9175 FOOT AND 11-11-2014 [facility] TOE INSECT [facility] BITE INC NONVENOMOUS INFECTED V7240 11-05-2014 [facility] EXAMINATION [facility] /TEST INC UNCONFIRMED 3671 MYOPIA 09-04-2014 NANCY DESOUZA 01426 ASTHMA 07-14-2014 [facility] UNSPECIFIED ASSOCIATES WITH EXACERBATIO N 96385 SHORTNESS 07-05-2014 [facility] BREATH [facility]ICAL [facility] V2549 SURVEILLANC 04-28-2014 [facility] E OT PREV PHYSICIANS PRSC GROUP CONTRACEPT METHOD 650 NORMAL 03-19-2014 [facility] DELIVERY PHYSICIANS GROUP 02649 SECOND-DEGR 03-19-2014 [facility] EE PERINEAL [facility] LACERATION INC WITH DELIVERY V270 OUTCOME OF 03-19-2014 [facility] DELIVERY PHYSICIANS SINGLE GROUP LIVEBORN 4019 UNSPECIFIED 03-18-2014 [facility] E[facility]ENTIAL [facility]IC[facility]ANS HYPERTENSIO [place] N V221 SUPERVISION 03-17-2014 [facility] OF OTHER PHYSICIANS NORMAL GROUP 63233 THREATENED 02-25-2014 [facility] PREMATURE PHYSICIANS LABOR GROUP ANTEPARTUM 64479 POOR 02-17-2014 [facility] GROWTH MGMT PHYSICIANS MOTH GROUP ANTPRTM COND/COMP 56687 OLIGOHYDRAM 02-17-2014 [facility] NIOS, PHYSICIANS ANTEPARTUM GROUP 4660 ACUTE 01-27-2014 [facility]IS [facility] INC 7242 LUMBAGO 01-27-2014 [facility] 7851 PALPITATION 01-27-2014 [facility] [email or web address] [facility] SERV [facility] 7862 COUGH 01-27-2014 [facility] 40404 CHEST PAIN 01-27-2014 [facility] UNSPECIFIED SERV FOUNDATION V222 01-27-2014 [facility] INCIDENTAL INC V283 ENCOUNTER 01-01-2014 [facility]OM SONI ROUTINE SCREEN MALFORMATIO N ULTRASONIC 62666 OTHER 10-09-2013 [facility] SPECIFED COMPLICATIO N ANTEPARTUM V7242 09-26-2013 [facility] EXAMINATION OR TEST POSITIVE RESULT V745 SCREENING 09-26-2013 [facility] EXAM[facility]ATION [facility] FOR VENEREAL DISEASE 68775 OTHER 07-27-2013 [facility] FATIGUE INC V2689 OTHER 07-24-2013 [facility] SPECIFIED DISTRICT PROCREATIVE [facility] DEPT MANAGEMENT [place] [address] UNSPECIFIED 12-17-2011 [facility] CONSTIPATIO INC N 4659 ACUTE URIS 11-18-2007 [facility] UNSPECIFIED HOSPITAL SITE 7806 FEVER & OTH 11-18-2007 [facility] DISTURBANCE S TEMP REG 06869 WHEEZING 11-18-2007 [facility] 462 ACUTE 08-06-2007 [facility] PHARYNGITIS [facility]ICAL CLINIC 70005 PAIN IN 06-14-2007 [facility] JOINT, MEDICAL SHOULDER CLINIC REGION 7291 UNSPECIFIED 06-14-2007 [facility] MYOSITIS 35986 CONTUSION 06-14-2007 [facility] MULTIPLE MEDICAL SITES CLINIC SHOULDER&UP PER ARM 062 MOSQUITO-PAO 04-30-2007 [facility] RNE VIRAL MEDICAL ENCEPHALITI CLINIC S 4619 ACUTE 04-30-2007 [facility] SINUSITIS, MEDICAL UNSPECIFIED CLINIC 7821 RASH AND 04-10-2007 [facility] OTHER MEDICAL NONSPECIFIC CLINIC SKIN ERUPTION 14957 PAINFUL 04-10-2007 [facility] RESPIRATION MEDICAL CLINIC Medications Na ND Rx Da Fi Fi [...] YL 15 6- 3- 00 01 ve IL 02 20 20 18 AI ED 20 [...] LL MG C /[address] [place] 65 03 04 14 9 00 RI [...] TA 10 4- 1- 00 01 ve MD 47 20 20 17 AI 01 17 17 37 D R 3 42 PH PH AR OS MA CY 75 #3 MG 93 8 CA PS UL E IL 00 03 03 15 5 00 RI Ac OM 60 -0 -3 0. 00 TE ti ET 31 6- 1- 00 01 ve REYNOLDS 58 20 20 0 17 AI ZI 55 17 17 38 D NE 8 42 PH -C AR OD MA EI CY NE #3 SY 93 RU 8 P IL 00 02 03 14 10 00 RI [...] la 1 UG bl e IN C [place] 50 08 08 00 12 4 WI 23 No Ac OM 38 -2 -2 0. LS 90 t ti ET 30 0- 8- 00 ON 64 Av ve REYNOLDS 80 20 20 0 ai ZI [address] vanessa NE 6 UG bl -C e OD IN EI C NE SY RU P IL 00 08 08 00 21 6 WA 69 TH Ac ED 60 -1 -2 .0 L- 57 OM ti NI 35 2- 8- 00 MA 00 ve SO 33 20 20 RT 1 NE 71 08 08 II 5 5 PH I AR ARTURO MG SHIRLEY HN CY H TA BL #4 ET 93 63 08 08 00 40 20 WI 23 No Ac 82 -2 -2 .0 LS 90 t ti 40 0- 8- 00 ON 63 Av ve 00 20 20 ai [address] la 0 UG bl e IN C 63 08 08 00 24 6 WA 69 TH Ac 30 -1 -2 .0 L- 56 OM ti 40 7- 8- 00 MA 99 ve 65 20 20 RT 8 70 08 08 II 1 PH I AR ARTURO SHIRLEY HN CY H #4 93 17 08 08 00 17 25 WI 23 No Ac 27 -1 -2 .0 LS 82 t ti 00 2- 8- 00 ON 55 Av ve 72 20 20 ai [address] la 1 UG bl e IN C [place] 59 08 08 00 6. 5 WI 23 No Ac IT 76 -2 -2 00 LS 90 t ti HR 23 0- 8- 0 ON 61 Av ve OM 06 20 20 ai YC [address] mendez IN 1 UG bl e 25 IN 0 C MG TA BL ET 17 05 05 00 17 25 WI [...] IN 0 C MG TA BL ET Procedures Procedure DOS Code Location Performer Comment [place] PREG 89753 [facility] UTERUS 7 MEDICAL AFTER 1ST IMAGING [place] 86910 [facility] W/DETAIL INC INC GARCIA 1ST GESTATION URNLS DIP 75344 [facility] [place] 7 [facility] STICK/TAB INC INC LET REAGENT AUTO MICROSCOP Y ADMN SET A7003 YOUR YOUR SM VOL 7 [facility] PNEUMAT NEBULIZR DISPBL GONADOTRO 26752 [facility] PIN 7 [facility] CHORIONIC INC INC QUANTITAT DIEUDONNE US PREG 50393 [facility] UTERUS 7 [facility] REAL TIME INC INC W/IMAGE DCMTN TRANSVAG THER 02930 [facility] PROPH/DX 7 [facility] NJX IV INC INC PUSH SINGLE/1S T SBST/DRUG CULTURE 95974 [facility] BACTERIAL 7 [facility] INC INC QUANTTATI VE COLONY COUNT URINE SMR PRIM 82401 [facility] SRC WET 7 [facility] H[facility] MOUNT INC INC NFCT AGT TISS JEFF 66675 [facility] SLIDE 7 [facility] SAMPS INC INC SKN/HR/NL S FNGI/ECTO PARASIT UNCLASSIF J3490 [facility] IED DRUGS 7 [facility] INC INC BASIC 55331 [facility] METABOLIC 7 [facility] PANEL INC INC CALCIUM TOTAL URINE 59980 [facility] 7 [facility] TEST INC INC VISUAL COLOR CMPRSN METHS IADNA 51413 [facility] CHLAMYDIA 7 LLC ER JR TRACHOMAT IS AMPLIFIED PROBE TQ IADNA 32367 [facility] NEISSERIA 7 LLC ER JR GONORRHOE AE AMPLIFIED PROBE TQ CYTP C/V 71441 [facility] AUTO THIN 7 LLC ER JR LYR PREPJ SCR MNL RESCR PHYS IAADIADOO 30399 [facility] 7 [facility] INFLUENZA INC [place] PREG 50274 ALLYN [facility]SON UTERUS 7 MEDICAL REAL TIME IMAGING W/IMAGE ASS DCMTN TRANSVAG URINE 86193 [facility] TOM 7 PHYSICIAN TEST S GROUP VISUAL COLOR CMPRSN METHS GONADOTRO 29625 [facility] PIN 7 [facility] CHORIONIC INC INC QUANTITAT DIEUDONNE COLLECTIO 93944 [facility] N VENOUS 7 [facility] BLOOD INC INC VENIPUNCT URE ADMN SET A7003 YOUR YOUR SM VOL 6 PHARMACY PHARMACY NONFILTR [facility] PNEUMAT NEBULIZR DISPBL ADMN SET A7003 YOUR YOUR SM VOL 6 PHARMACY PHARMACY NONFILTR [facility] PNEUMAT NEBULIZR DISPBL ADMN SET A7003 YOUR PLAZA SM VOL 6 PHARMACY TORI NONFILTR LLC PNEUMAT NEBULIZR DISPBL ADMN SET A7003 YOUR YOUR SM VOL 6 PHARMACY PHARMACY NONFILTR [facility] PNEUMAT NEBULIZR DISPBL CONTRACEP A4269 [facility] SUPPLY TH DEPT TH DEPT SPERMICID [place] E EACH CONTRACEP A4267 [facility] SUPPLY [facility] DEPT [facility] DEPT CONDOM [place] MALE EACH CONTRACEP S4993 [facility] PILLS FOR TH DEPT [facility] CONTROL [facility]INE [facility]96 [facility] TEST [facility] DEPT [facility] DEPT VISUAL [facility] COLOR CMPRSN METHS BLOOD 13575 [facility] COUNT 6 [facility] COMPLETE INC INC AUTO&AUTO DIFRNTL WBC COMPREHEN 59811 [facility] SIVE 6 [facility] [place] [address] [facility] FOLIC 6 [facility] [address] [facility] FREE 6 [facility] [place] [address] [facility] THYROID 6 [facility] STIMULATI INC INC NG HORMONE TSH NEBULIZER E0570 [facility] MONDRAGON WITH 6 HOME HOME COMPRESSO MEDICAL MEDICAL R EQUIPME EQUIPME CYANOCOBA 64359 [facility] BRAYDEN 6 [facility] HOS[facility]OS[facility] VITAMIN INC INC B-12 ADMN SET A7003 YOUR YOUR SM VOL 6 PHARMACY PHARMACY NONFILTR [facility] [place] [address] [facility] STREPTOCO 6 [facility] H[facility] CCUS INC INC GROUP A RADIOLOGI 59708 [facility] EX[facility] 6 MEDICAL CHEST 2 IMAGING VIEWS ASS FRONTAL&L ATERAL IAADI 24269 [facility] INFLUENZA 6 [facility] B VIRUS INC INC IAADI 95181 [facility] INFFLUENZ 6 [facility] A A VIRUS INC INC UNCLASSIF J3490 [facility] IED DRUGS 6 [facility] INC INC CUL BACT 59253 [facility] XCPT 6 [facility] URINE INC INC BLOOD/STO OL AEROBIC ISOL AMB A0427 [facility] SERVICE 5 AMBULANCE AMBULANCE ALS SERVICE SERVICE EMERGENCY TRANSPORT LEVEL 1 URINE 34551 [facility] 5 [facility] TEST INC [place] [address] [facility] HEAD/BRAI 5 [facility] N W/O INC INC CONTRAST MATERIAL CREATINE 69595 [facility] KINASE 5 [facility] TOTAL INC INC ECG 18987 [facility] ROUTINE 5 [facility] ECG INC INC W/LEAST 12 LDS TRCG ONLY W/O I&R GROUND A0425 [facility] AMBULANCE PER SERVICE SERVICE STATUTE MILE ECG 68614 [facility] RICH ROUTINE [address] [facility] W/LEAST P 12 LDS I&R ONLY URNLS DIP 11340 [facility]SON 5 [facility] STICK/TAB INC INC [place] [address] [facility] TROPONIN 5 [facility] QUANTITAT INC INC DIEUDONNE BLOOD 11922 [facility] COUNT 5 [facility] COMPLETE INC INC AUTO&AUTO DIFRNTL WBC COMPREHEN 56134 [facility] SIVE 5 [facility] METABOLIC INC INC PANEL CREATINE 20137 [facility] KINASE MB 5 [facility] FRACTION INC INC ONLY COMPREHEN 89837 [facility] SIVE 5 [facility] METABOLIC INC INC PANEL BLOOD 48775 [facility] COUNT 5 [facility] COMPLETE INC INC AUTO&AUTO DIFRNTL WBC RADIOLOGI 62347 [facility] Garcia EXAM 5 [facility] CHEST 2 INC INC VIEWS FRONTAL&L ATERAL PRESSURIZ 31852 [facility] ED/NONPRE 5 [facility] SSURIZED INC INC INHALATIO N TREATMENT FIBRIN 96492 [facility] DGRADJ 5 [facility] PRODUCTS INC INC D-DIMER QUAL/SEMI JASPREET THER 14758 [facility] PROPH/DX 5 [facility] NJX IV INC INC PUSH SINGLE/1S T SBST/DRUG URINE 93118 [facility] 5 PHYSICIAN ZACHARIAH TEST S GROUP VISUAL COLOR CMPRSN METHS COLLECTIO 80165 [facility] [place] VENOUS 5 [facility] BLOOD INC INC VENIPUNCT URE GONADOTRO 66717 [facility] PIN 5 [facility] CHORIONIC INC INC QUALITATI VE OPHTH 21197 [facility] 5 GRE GRE XM&EVAL COMPRE NEW PT 1/> VST BASIC 54658 [facility] METABOLIC 5 [facility] PANEL INC INC CALCIUM TOTAL COLLECTIO 45772 [facility] [place] VENOUS 5 [facility] BLOOD INC INC VENIPUNCT URE UNCLASSIF J3490 [facility] IED DRUGS 5 [facility] INC INC OBSERVATI 85619 [facility] CARE 5 CARE EZIO DISCHARGE ASSOCIATE S MANAGEMEN T BLOOD 52371 [facility] COUNT 5 [facility] COMPLETE INC INC AUTO&AUTO DIFRNTL WBC HOSPITAL G0378 [facility] OBSERVATI 5 [facility] ON INC INC SERVICE PER HOUR PRESSURIZ 58891 [facility] ED/NONPRE 5 [facility] SSURIZED INC INC INHALATIO N TREATMENT NONINVASI 95613 [facility] VE 5 [facility] EAR/PULSE INC INC OXIMETRY SINGLE DETER THERAPEUT 98281 [facility] IC 5 [facility] INJECTION INC INC IV PUSH EACH NEW DRUG NONINVASI 41746 [facility] VE 5 [facility] EAR/PULSE INC INC OXIMETRY SINGLE DETER SMR PRIM 70154 [facility] SRC 5 [facility] GRAM/GIEM INC INC SA STAIN BCT FUNGI/DHAVAL L BLOOD 40028 [facility] COUNT 5 [facility] COMPLETE INC INC AUTO&AUTO DIFRNTL WBC PRESSURIZ 43494 [facility] ED/NONPRE 5 [facility] SSURIZED INC INC INHALATIO N TREATMENT HOSPITAL G0378 [facility] OBSERVATI 5 [facility] [place] [address] [facility] INFUSION 5 [facility] THERAPY/P INC INC ROPHYLAXI S /DX 1ST TO 1 HR UNCLASSIF J3490 [facility] IED DRUGS 5 [facility] INC INC BASIC 96065 [facility] METABOLIC 5 [facility] PANEL INC INC CALCIUM TOTAL INITIAL 11401 [facility] CHARLEY OBSERVATI 5 CARE EZIO ON ASSOCIATE CARE/DAY S 50 MINUTES INJECTION J2405 [facility] 5 [facility] ONDANSETR INC INC ON HCL PER 1 MG COLLECTIO 05157 [facility] N VENOUS 5 [facility] BLOOD INC INC VENIPUNCT URE INJECTION J0456 [facility] 5 [facility] AZITHROMY INC INC MATT 500 MG CUL BACT 41505 [facility] XCPT 5 [facility] URINE INC INC BLOOD/STO OL AEROBIC ISOL COMPREHEN 09659 [facility] SIVE 5 [facility] METABOLIC INC INC PANEL UNCLASSIF J3490 [facility] IED DRUGS 5 [facility] INC INC AMB A0427 [facility] 5 AMBULANCE AMBULANCE ALS SERVICE SERVICE EMERGENCY TRANSPORT LEVEL 1 GONADOTRO 81385 [facility] PIN 5 [facility] CHORIONIC INC INC QUALITATI VE BLOOD 00458 [facility] COUNT 5 [facility] COMPLETE INC INC AUTO&AUTO DIFRNTL WBC CULTURE 26324 [facility] BACTERIAL 5 [facility] BLOOD INC INC AEROBIC W/ID ISOLATES GROUND A0425 [facility] AMBULANCE PER SERVICE SERVICE STATUTE [facility] RADIOLOG[facility] 60698 [facility] C EXAM 5 [facility] CHEST 2 INC INC VIEWS FRONTAL&L ATERAL PRESSURIZ 24279 [facility] ED/NONPRE 5 [facility] SSURIZED INC INC INHALATIO N TREATMENT THERAPEUT 64653 [facility] TOM IC 5 PHYSICIAN ZACHARIAH PROPHYLAC S GROUP TIC/DX INJECTION SUBQ/IM NEURAXIAL 73805 [facility] KOTHARI JORGE LABOR 4 ANESTH ANALG/ANE OF THE S PLND BLUE VAGINAL DELIVERY VAGINAL 91845 [facility] TOM DELIVERY 4 PHYSICIAN ZACHARIAH ONLY S GROUP W/POSTPAR FEMI CARE REPAIR OF 7569 [facility] OTHER 4 [facility] CURRENT INC INC OBSTETRIC LACERATIO N CUL BACT 32528 COMBINED COMBINED XCPT 4 PHYSICIAN PHYSICIAN URINE S LA S LA BLOOD/STO OL AEROBIC ISOL 59080 [facility] SANTOS NONSTRESS 4 PHYSICIAN ZACHARIAH TEST S GROUP DOPPLER 93716 [facility] SANTOS VELOCIMET 4 PHYSICIAN ZACHARIAH RY S GROUP UMBILICAL ARTERY 48836 [facility] BIOPHYSIC 4 PHYSICIAN ZACHARIAH AL S GROUP PROFILE W/O NON-STRES S TESTING US PREG 90664 [facility] UTERUS 4 PHYSICIAN [place] REAL TIME S GROUP F/U TRNSABDL PER FETUS US PREG 72424 [facility] UTERUS 4 PHYSICIAN [place] REAL TIME S GROUP F/U TRNSABDL PER FETUS 76066 [facility] BIOPHYSIC 4 PHYSICIAN [place] AL S GROUP PROFILE W/O NON-STRES S TESTING DOPPLER 41481 [facility] VELOCIMET 4 PHYSICIAN [place] RY S GROUP UMBILICAL ARTERY THERAPEUT 06700 [facility] IC [facility] PROPHYLAC INC INC TIC/DX INJECTION SUBQ/IM 80066 [facility] NONSTRESS 4 [facility] [place] [address] [facility] INFUSION 4 [facility] THERAPY/P INC INC ROPHYLAXI S /DX 1ST TO 1 HR URNLS DIP 06418 [facility] STICK/TAB INC INC LET REAGENT AUTO MICROSCOP Y CULTURE 88106 [facility] JONES BACTERIAL 4 [facility] LABORATOR INC IES QUANTTATI VE COLONY COUNT URINE FIBRIN 91661 [facility] DGRADJ 4 [facility] PRODUCTS INC INC D-DIMER QUAL/SEMI JASPREET BLOOD 27745 [facility] VNISON COUNT 4 [facility] COMPLETE INC INC AUTO&AUTO DIFRNTL WBC PRESSURIZ 52443 [facility] ED/NONPRE 4 [facility] SSURIZED INC INC INHALATIO N TREATMENT ECHO 44654 [facility]T 4 MEDICAL 2D SERV W/WOM-MOD FOUNDATIO E COMPL N SPEC&COLR D RADIOLOGI 39312 [facility] C EXAM 4 MEDICAL BREEZY CHEST 2 IMAGING VIEWS ASS FRONTAL&L ATERAL COMPREHEN 40655 [facility] SIVE 4 [facility] METABOLIC INC INC PANEL US PREG 65427 TOM [facility]OS UTERUS 4 [place] AFTER 1ST TRIMEST / GESTATION US PREG 42432 [facility] S[facility] UTERUS 4 [place] AFTER 1ST TRIMEST [place]ST[place] PREG 48182 SANTOSEugenia S[facility]OS UTERUS 4 [place] REAL TIME W/IMAGE DCMTN TRANSVAG CYTP C/V 61991 PICKLESIM PICKLESIM AUTO THIN 4 ER JR CHEVY ER JR CHEVY LYR PREPJ SCR MNL RESCR PHYS IADNA 16897 PICKLESIM PICKLESIM CHLAMYDIA 4 ER JR CHEVY ER JR CHEVY TRACHOMAT IS AMPLIFIED PROBE TQ URINE 06815 TOM SANTOS 4 [place] TEST VISUAL COLOR CMPRSN METHS IADNA 47089 PICKLESIM PICKLESIM NEISSERIA 4 ER JR CHEVY ER JR CHEVY GONORRHOE AE AMPLIFIED PROBE TQ INJECTION J2405 [facility] ONDANSETR INC INC ON HCL PER 1 MG COMPREHEN 89889 [facility] SIVE 4 [facility] METABOLIC INC INC PANEL URINE 77595 [facility] TEST INC INC VISUAL COLOR CMPRSN METHS GONADOTRO 08054 [facility] PIN 4 [facility] [place] [address] AL[facility] VINSON INFUSION 4 PHYSICIANS [facility] THERAPY/P INC INC ROPHYLAXI S /DX 1ST TO 1 HR THERAPEUT 04887 [facility] VINSON IC 4 [facility] INJECTION INC INC IV PUSH EACH NEW DRUG PRESSURIZ 37155 [facility] VIN[facility] ED/NONPRE 4 [facility] SSURIZED INC INC INHALATIO N TREATMENT BLOOD 74715 [facility] VINSON COUNT [address] [facility] COMPLETE INC INC AUTO&AUTO DIFRNTL WBC URNLS DIP 07735 [facility] VINSON 4 [facility] STICK/TAB INC INC LET REAGENT AUTO MICROSCOP Y CONTRACEP [id number] [facility] DEPT HLTH DEPT CONDOM [place] MALE EACH URINE 22504 [facility] TEST HLTH DEPT HLTH DEPT VISUAL [place] COLOR CMPRSN METHS IAADIADOO 11994 OG ESPINOZA, 8 [facility] CCUS [facility] A Encounters Encounter Start End Date Code Location Performer Type Date HOSPITAL [facility] - 7 7 [facility] OUTPATIEN INC T OFFICE 23640 [facility] TOM NARAYANANEN 7 7 PHYSICIAN T VISIT S GROUP 15 MINUTES OFFICE 71630 [facility] TOM OUTPATIEN 7 7 PHYSICIAN T VISIT S GROUP 15 MINUTES HOSPITAL [facility] - 7 7 [facility] OUT[facility]IEN INC T EMERGENCY 42669 [facility] DEPT 7 7 [facility] VISIT INC HIGH SEVERITY& THREAT FUNCJ OFFICE 35419 [facility] SANTOS OUTPATIEN 7 7 PHYSICIAN T VISIT S GROUP 15 MINUTES OFFICE 85305 [facility] OUTKYLE 7 7 [facility] T VISIT 5 INC MINUTES [facility]OSP[facility] - 7 7 [facility]PATIEN INC T [facility] - 7 7 [facility] OUTPATIEN INC T OFFICE 13598 [facility] TOM OUTPATIEN 7 7 PHYSICIAN T VISIT S GROUP 25 MINUTES HOSPITAL [facility] - 7 7 [facility] OUTPATIEN INC T [facility]OSPITAL [facility] - 6 6 [facility] OUTPATIEN INC T EMERGENCY 20941 [facility] 6 6 [facility] DEPARTMEN INC T VISIT LIMITED/M INOR PROB EMERGENCY 44426 JOSESITO MOLINA 6 6 PHYSICIAN PANCHITO DOE S, [facility] T VISIT MODERATE SEVERITY OFFICE 99064 [facility] TOM OUTPATIEN 6 6 PHYSICIAN ZACHARIAH T VISIT S GROUP MINUTES OFFICE 79917 [facility] T VISIT [facility] DEPT [facility] DEPT [address] [facility] ALISSON - 6 6 [facility] OUTPATIEN INC T OFFICE 64047 [facility] BRANDON OUTPATIELIEZER 6 6 PHYSICIAN STONE T NEW 30 S GROUP CHARLENE YAMEL [facility] ALISSON - 6 6 [facility] OUTPATIEN INC T EMERGENCY 09330 JOSESITO MOLINA 6 6 PHYSICIAN PANCHITO DOE S, [facility] T VISIT MODERATE SEVERITY EMERGENCY 81220 [facility] 6 6 [facility] DEPARTMEN [facility] T VISIT LOW/MODER SEVERITY EMERGENCY 25044 JOSESITO HUITRON DEPT 5 5 PHYSICIAN BOOGIE VISIT S, [facility] HIGH SEVERITY& THREAT [facility] ALISSON - 5 5 [facility] OUTPATIEN [facility] T EMERGENCY 06085 [facility] 5 5 [facility] DEPARTMEN INC T VISIT HIGH/URGE NT SEVERITY EMERGENCY 37922 JOSESITO CLEMONS DEPT 5 5 PHYSICIAN FOR VISIT S, PLL[facility] HIGH SEVERITY& THREAT FUNCJ EMERGENCY 35720 [facility] 5 5 [facility] DEPARTMEN INC T VISIT MODERATE SEVERITY HOSPITAL [facility] - 5 5 [facility] OUTPATIEN INC T OFFICE 15377 [facility] TOM OUTPATIEN 5 5 PHYSICIAN ZACHARIAH T VISIT S GROUP 15 MINUTES HOSPITAL [facility] - 5 5 [facility] OUTPATIEN INC T EMERGENCY 08212 [facility] 5 5 [facility] DEPARTMEN INC T VISIT LOW/MODER SEVERITY EMERGENCY 98196 JOSESITO TAVAREZ 5 5 PHYSICIAN [facility] T VISIT MODERATE SEVERITY HOSPITAL [facility] - 5 5 [facility] OUTPATIEN INC T OFFICE 99372 [facility] OUTPATIEN 5 5 CARE EZIO T VISIT ASSOCIATE 15 S MINUTES EMERGENCY 65017 [facility] HUITRON 5 5 [facility] T VISIT P HIGH/URGE NT SEVERITY HOSPITAL [facility] - 5 5 [facility] OUTPATIEN INC T EMERGENCY 01969 [facility] 5 5 [facility] DEPARTMEN INC T VISIT MODERATE SEVERITY HOSPITAL [facility] - 4 4 [facility] INPATIENT INC OFFICE 63327 [facility] SANTOS OUTPATIEN 4 4 PHYSICIAN ZACHARIAH T VISIT S GROUP 15 MINUTES OFFICE 49123 [facility] SANTOS OUTPATIEN 4 4 PHYSICIAN ZACHARIAH T VISIT S GROUP 15 MINUTES OFFICE 65072 [facility] SANTOS OUTPATIEN 4 4 PHYSICIAN ZACHARIAH T VISIT S GROUP 15 MINUTES OFFICE 28891 [facility] SANTOS OUTPATIEN 4 4 PHYSICIAN ZACHARIAH T VISIT S GROUP 15 MINUTES HOSPITAL [facility] - 4 4 [facility] OUTPATIEN INC T HOSPITAL [facility] - 4 4 [facility] OUTPATIEN INC T OFFICE 56656 TOM SANTOS OUTPATIEN 4 4 ZACHARIAH ZACHARIAH T VISIT 15 MINUTES EMERGENCY 02352 [facility] DEPT 4 4 ARUN VISIT EMERGENCY HIGH PHYS SEVERITY& THREAT [facility] ALISSON - 4 4 [facility] OUTPATIEN INC T EMERGENCY 35681 [facility] 4 4 [facility] DEPARTMEN INC T VISIT LOW/MODER SEVERITY OFFICE 19888 [facility] SANTOS OUTPATIEN 4 4 ZACHARIA[facility] ZACHARIAH T VISIT 15 MINUTES OFFICE 39233 TOM SANTOS OUTPATIEN 4 4 [facility]ACH[facility] ZACHARIA[facility] T VISIT 25 MINUTES EMERGENCY 71532 [facility] 4 4 [facility] DEPARTMEN INC T VISIT MODERATE SEVERITY HOSPITAL [facility] - 4 4 [facility] OUTPATIEN INC T OFFICE 03064 ERIK VALENCIA OUTPATIEN [address] DEPT [facility] DEPT MINUTES [facility] ALISSON - 3 3 [facility] INPATIENT INC EMERGENCY 36123 [facility] 2 2 [facility] DEPARTMEN INC T VISIT LIMITED/M INOR [facility] HOSPITAL ALISSON - 2 2 [facility] OUTPATIEN INC T OFFICE 13162 THEA PATEL 8 8 [facility] T VISIT CLINIC 25 MINUTES EMERGENCY 14078 [facility] 8 8 [facility] EMERGENCY T VISIT PHYS INC MODERATE SEVERITY [facility]OSPITAL [facility]ISAIASON - 8 8 [facility] T VISIT LOW/MODER SEVERITY OFFICE 77014 THEA PATEL 8 8 [facility] 15 MINUTES OFFICE 27819 [facility] PATEL 8 8 [facility]IN[facility] 15 MINUTES OFFICE 03568 [facility] PATEL 8 8 [facility] 15 MINUTES OFFICE 61531 THEA TIM 8 8 [facility] T VISIT CLINIC 15 MINUTES
--- OUTSIDE RECORDS SUMMARY | 2016-10-03 19:03 | External Medical Summary Rpt ---
Demographics Preferred Language Danish Marital Status Unknown Zoroastrianism Affiliation Unknown Race Unknown Ethnic Group Unknown Author Author , Organization [employer] Address Unknown Phone Unavailable Purpose Continuity of Care Document - through 2016 Immunization No patient found.
--- OUTSIDE RECORDS SUMMARY | 2016-10-03 19:03 | External Medical Summary Rpt ---
Author Author , Organization [employer] Address Unknown Phone Unavailable Care Team Providers Care Enamel Pulverizer Name Role Phone [facility] Unavailable Unavailable [facility] BEINEKE, BEINEKE Unavailable Unavailable [facility] BREEZY, BEINEKE Unavailable Unavailable [facility] BESSON PASQUALE, BESSON Unavailable Unavailable PASQUALE SWANSON, SWANSON Unavailable Unavailable [facility] Unavailable Unavailable [facility] Unavailable Unavailable SERVICE, [facility] SANTOS, SANTOS Unavailable Unavailable [...] Unavailable Unavailable INC, [facility], Unavailable Unavailable [facility] Unavailable Unavailable [facility], [facility] Unavailable [facility], [facility] JACQUES PASQUALE, JACQUES PASQUALE Unavailable Unavailable CORBY BIANCA, CORBY Unavailable Unavailable BIANCA NANCY GRE, Unavailable Unavailable NANCY GRE NANCY GRE, Unavailable Unavailable [facility], Unavailable Unavailable [facility] Un[facility] Unavailable Unavailable PLL[facility], [facility] PICKLESIMER JR, Unavailable Unavailable PICKLESIMER JR PICKLESIMER JR CHEVY, Unavailable Unavailable PICKLES[facility]ER JR CHEVY PICKLESIMER JR CHEVY, Unavailable Unavailable PICKLESIMER JR CHEVY RENUSCH PANCHITO, RENUSCH Unavailable Unavailable [facility] Unavailable Unavailable [facility], [facility] Unavailable Unavailable [facility], [facility] WALKER FOR, WALKER Unavailable Unavailable [facility] Un[facility] DE[facility] [place] [facility] Unavailable [facility]available [facility]PT [facility] Unavailable Unavailable [facility], Unavailable Unavailable [facility] LORIE ESPINOZA R, Unavailable Unavailable LORIE ESPINOZA R [facility], Unavailable [facility]available [facility], Unavailable Unavailable [facility] Purpose Continuity of Care Document - 04-10-2007 through 2016 Problems Code Diagnosis DOS Provider Status Z3492 ENC 08-19-2016 [facility] UNS 2 TRIMESTER Z36 ENCOUNTER 08-19-2016 [facility] SCREENING OF MOTHER Z3A19 19 WEEKS 08-19-2016 [facility] Z3480 ENC 08-04-2016 [facility] SUPERVISION PHYSICIANS OTH NORMAL GROUP PREG UNS TRIMESTER [id number] UNSPECIFIED 06-27-2016 [facility] ED N72 INFLAMMATOR 06-27-2016 [facility] UTERI O209 HEMORRHAGE 06-27-2016 [facility]LY [facility] UNSPECIFIED N57500 INFECTIONS 06-27-2016 [facility] CERVIX IN [facility], PLLC [...] HOSP NORMAL INC FIRST PREG 1 TRIMESTER J70010 UTERINE 05-13-2016 [facility] SIZE-DATE [facility] DISCREPANCY INC FIRST TRIMESTER Z3491 ENC 05-13-2016 [facility] UNS 1 TRIMESTER Z3A01 LESS THAN 8 05-13-2016 [facility] Z3201 ENCOUNTER 05-09-2016 [facility] GROUP TEST RESULT POSITIVE H6691 OTITIS 02-27-2016 [facility], UNSPECIFIED PLLC RIGHT EAR N926 IRREGULAR 12-15-2015 [facility] MENSTRUATIO PHYSICIANS N GROUP UNSPECIFIED X24581 ENCOUNTER 12-15-2015 [facility] INITIAL PHYSICIANS PRESCRIPTIO GROUP N OTH CONTRACEPTI VE E01844 ENCOUNTER 09-03-2015 [facility] DEPT N [place] CONTRACEPT PILLS Z3202 ENCOUNTER 09-03-2015 [facility] DEPT TEST RESULT [place] NEGATIVE 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 R05 COUGH 07-18-2015 [facility] R509 FEVER 07-18-2015 [facility] J323 CHRONIC 03-26-2015 [facility] SPHENOIDAL [facility], SINUSITIS PLL R079 CHEST PAIN 03-26-2015 [facility] UNSPECIFIED PHYSICIANS, [facility] R200 ANESTHESIA 03-26-2015 [facility]IN [facility] R202 PARESTHESIA 03-26-2015 [facility] OF SKIN PHYSICIANS, [facility] J4521 MILD 02-11-2015 [facility] INTERMITTEN [facility]IANS, T ASTHMA [facility] WITH ACUTE EXACERBATIO N 6264 IRREGULAR 11-26-2014 [facility] MENSTRUAL PHYSICIANS CYCLE GROUP V2509 OTH GENERAL 11-26-2014 [facility] PHYSICIANS CNSL&ADVICE GROUP CONTRACEPT MANAGEMENT 10286 ASTHMA, 11-11-2014 [facility] UNSPECIFIED [facility] , INC UNSPECIFIED STATUS 9174 FOOT&TOE 11-11-2014 [facility] INSECT BITE PHYSICIANS, [facility] NONVENOMOUS W/O MENTION INF 9175 FOOT AND 11-11-2014 [facility] TOE INSECT [facility] BITE INC NONVENOMOUS INFECTED V7240 11-05-2014 [facility] EXAMINATION [facility] /TEST INC UNCONFIRMED 3671 MYOPIA 09-04-2014 NANCY DESOUZA 87701 ASTHMA 07-14-2014 [facility] UNSPECIFIED [facility]OCIATES [place] EXACERBATIO N 28493 SHORTNESS 07-05-2014 [facility]ATH [facility] V2549 SURVEILLANC 04-28-2014 [facility] E OT PREV PHYSICIANS PRSC GROUP CONTRACEPT METHOD 650 NORMAL 03-19-2014 [facility] DELIVERY PHYSICIANS GROUP 75676 SECOND-DEGR 03-19-2014 [facility] EE PERINEAL [facility] LACERATION INC WITH DELIVERY V270 OUTCOME OF 03-19-2014 [facility] DELIVERY PHYSICIANS SINGLE GROUP LIVEBORN 4019 UNSPECIFIED 03-18-2014 [facility] ESSENTIAL PHYSICIANS HYPERTENSIO LA N V221 SUPERVISION 03-17-2014 [facility] OF OTHER PHYSICIANS NORMAL GROUP 31777 THREATENED 02-25-2014 [facility] PREMATURE PHYSICIANS LABOR GROUP ANTEPARTUM 43430 POOR 02-17-2014 [facility] GROWTH MGMT PHYSICIANS MOTH GROUP ANTPRTM COND/COMP 73593 OLIGOHYDRAM 02-17-2014 [facility] NIOS, PHYSICIANS ANTEPARTUM GROUP 4660 ACUTE 01-27-2014 [facility]IS [facility] 7242 LUMBAGO 01-27-2014 [facility] 7851 PALPITATION 01-27-2014 [facility] 7862 COUGH 01-27-2014 [facility] 64525 CHEST PAIN 01-27-2014 [facility] UNSPEC[facility]IED SERV [facility] V222 01-27-2014 [facility], [facility] INCIDENTAL INC V283 ENCOUNTER 01-01-2014 [facility] ROUTINE SCREEN MALFORMATIO N ULTRASONIC 61521 OTHER 10-09-2013 [facility] SPECIFED COMPLICATIO N ANTEPARTUM V7242 09-26-2013 [facility] EXAMINATION OR TEST POSITIVE RESULT V745 SCREENING 09-26-2013 [facility] EXAMINATION [facility] FOR VENEREAL DISEASE 14150 OTHER 07-27-2013 [facility] FATIGUE INC V2689 OTHER 07-24-2013 [facility] SPECIFIED [facility] PROCREATIVE [facility] DEPT MANAGEMENT [place] [address] UNSPECIFIED 12-17-2011 [facility] CONSTIPATIO INC N 4659 ACUTE URIS 11-18-2007 [facility] UNSPECIFIED HOSPITAL SITE 7806 FEVER & OTH 11-18-2007 [facility] DISTURBANCE S TEMP REG 38110 WHEEZING 11-18-2007 [facility] 462 ACUTE 08-06-2007 [facility] PH[facility]IS [facility]ICAL [facility]INIC 49627 PAIN IN 06-14-2007 [facility] JOINT, MEDICAL SHOULDER CLINIC REGION 7291 UNSPECIFIED 06-14-2007 [facility] MYOSITIS 25706 CONTUSION 06-14-2007 [facility] MULTIPLE MEDICAL SITES CLINIC SHOULDER&UP PER ARM 062 MOSQUITO-PAO 04-30-2007 [facility] RNE VIRAL MEDICAL ENCEPHALITI CLINIC S 4619 ACUTE 04-30-2007 [facility] SINUSITIS, MEDICAL UNSPECIFIED CLINIC 7821 RASH AND 04-10-2007 [facility] OTHER MEDICAL NONSPECIFIC CLINIC SKIN ERUPTION 87052 PAINFUL 04-10-2007 [facility] RESPIRATION MEDICAL CLINIC Medications Na ND Rx [...] YL 15 6- 3- 00 01 ve MN 02 20 20 18 AI ED 20 [...] LL MG C /[address] MN 65 03 04 14 9 00 RI [...] TA 10 4- 1- 00 01 ve [place] 47 20 20 17 AI 01 17 17 37 D R 3 42 PH PH AR OS MA CY 75 #3 MG 93 8 CA PS UL E MN 00 03 03 15 5 00 RI Ac OM 60 -0 -3 0. 00 TE ti ET 31 6- 1- 00 01 ve REYNOLDS 58 20 20 0 17 AI ZI 55 17 17 38 D NE 8 42 PH -C AR OD MA EI CY NE #3 SY 93 RU 8 P MN 00 02 03 14 10 00 RI [...] la 1 UG bl e IN C MN 50 08 08 00 12 4 WI 23 No Ac OM 38 -2 -2 0. LS 90 t ti ET 30 0- 8- 00 ON 64 Av ve REYNOLDS 80 20 20 0 ai ZI [address] vanessa NE 6 UG bl -C e OD IN EI C NE SY RU P MN 00 08 08 00 21 6 WA [...] DOS Code [place] Performer [place] PREG 75183 [facility] UTERUS 7 MEDICAL AFTER 1ST IMAGING [place] 69546 [facility] UTERUS 7 [facility] W/DETAIL INC INC GARCIA 1ST GESTATION URNLS DIP 96392 [facility] ALVESON 7 [facility] STICK/TAB INC INC LET REAGENT AUTO MICROSCOP Y ADMN SET A7003 YOUR YOUR SM VOL 7 PHARMACY PHARMACY NONFILGEISINGER [facility] PNEUMAT NEBULIZR DISPBL GONADOTRO 97077 [facility] PIN 7 [facility] CHORIONIC INC INC QUANTITAT DIEUDONNE US PREG 53919 [facility] UTERUS 7 [facility] REAL TIME INC INC W/IMAGE DCMTN TRANSVAG THER 52437 [facility] PROPH/DX 7 [facility] NJX IV INC INC PUSH SINGLE/1S T SBST/DRUG CULTURE 78108 [facility] BACTERIAL 7 [facility] INC INC QUANTTATI VE COLONY COUNT URINE SMR PRIM 69103 [facility] SRC WET 7 [facility] H[facility] MOUNT INC INC NFCT AGT TISS JEFF 72626 [facility] SLIDE 7 [facility] SAMPS INC INC SKN/HR/NL S FNGI/ECTO PARASIT UNCLASSIF J3490 [facility] IED DRUGS 7 [facility] INC INC BASIC 26414 [facility] METABOLIC 7 [facility] PANEL INC INC CALCIUM TOTAL URINE 52226 [facility]SON 7 [facility] TEST INC INC VISUAL COLOR CMPRSN METHS IADNA 35035 [facility] CHLAMYDIA 7 LLC ER JR TRACHOMAT IS AMPLIFIED PROBE TQ IADNA 91071 [facility] NEISSERIA 7 LLC ER JR GONORRHOE AE AMPLIFIED PROBE TQ CYTP C/V 19056 [facility] AUTO THIN 7 LLC ER JR LYR PREPJ SCR MNL RESCR PHYS IAADIADOO 65061 [facility] 7 [facility] INFLUENZA INC INC [place] PREG 03557 ALLYN [facility] UTERUS 7 MEDICAL REAL TIME IMAGING W/IMAGE ASS DCMTN TRANSVAG URINE 52637 [facility] TOM 7 PHYSICIAN TEST S GROUP VISUAL COLOR CMPRSN METHS GONADOTRO 17568 [facility] PIN 7 [facility] CHORIONIC INC INC QUANTITAT DIEUDONNE COLLECTIO 60028 [facility] N VENOUS 7 [facility] BLOOD INC INC VENIPUNCT URE ADMN SET A7003 YOUR YOUR SM VOL 6 PHARMACY PHARMACY NONFILTR [facility] PNEUMAT NEBULIZR DISPBL ADMN SET A7003 YOUR YOUR SM VOL 6 PHARMACY PHARMACY NONFILTR [facility] PNEUMAT NEBULIZR DISPBL ADMN SET A7003 YOUR PLAZA SM VOL 6 PHARMACY TORI NONFILTR LLC PNEUMAT NEBULIZR DISPBL ADMN SET A7003 YOUR YOUR SM VOL 6 PHARMACY PHARMACY NONFILTR [facility] PNEUMAT NEBULIZR DISPBL CONTRACEP A4269 [facility] SU[facility] TH DEPT TH [facility]PT SPERMICID [place] EACH CONTRACEP A4267 [facility] SUPPLY [facility] DEPT [facility] DEPT CONDOM [place]ALE EACH CONTRACEP S4993 [facility] PILLS FOR TH DEPT [facility]PT [facility] CONTROL URINE [facility]96 [facility] TEST [facility] DEPT [facility] DEPT VISUAL [facility] COLOR CMPRSN METHS BLOOD 56605 [facility] COUNT 6 [facility] COMPLETE INC INC AUTO&AUTO DIFRNTL WBC COMPREHEN 39045 [facility] SIVE 6 [facility] [place] [address] [facility] FOLIC 6 [facility] [address] [facility] FREE 6 [facility] [place] [address] [facility] THYROID 6 [facility] STIMULATI INC INC NG HORMONE TSH NEBULIZER E0570 [facility] MONDRAGON WITH 6 HOME HOME COMPRESSO MEDICAL MEDICAL R EQUIPME EQUIPME CYANOCOBA 43438 [facility] BRAYDEN 6 MEM [facility]OS[facility] VITAMIN INC INC B-12 ADMN SET A7003 YOUR YOUR SM VOL 6 PHARMACY PHARMACY NONFILTR [facility] [place] [address] [facility] STREPTOCO 6 [facility] HOSP [facility] CCUS INC INC GROUP A RADIOLOGI 73832 [facility] EX[facility] 6 MEDICAL CHEST 2 IMAGING VIEWS ASS FRONTAL&L ATERAL IAADI 34206 [facility] INFLUENZA 6 [facility] B VIRUS INC INC IAADI 07034 [facility] INFFLUENZ 6 [facility] A A VIRUS INC INC UNCLASSIF J3490 [facility] IED DRUGS 6 [facility] INC INC CUL BACT 40623 [facility] XCPT 6 [facility] URINE INC INC BLOOD/STO OL AEROBIC ISOL AMB A0427 MALLORY [facility] SERVICE 5 AMBULANCE AMBULANCE ALS SERVICE SERVICE EMERGENCY TRANSPORT LEVEL 1 URINE 89743 [facility] 5 [facility] TEST [place] [address] [facility] HEAD/BRAI 5 [facility] N W/O INC INC CONTRAST MATERIAL CREATINE 24020 [facility] KINASE 5 [facility] TOTAL INC INC ECG 83440 [facility] ROUTINE 5 [facility] ECG INC INC W/LEAST 12 LDS TRCG ONLY W/O I&R GROUND A0425 [facility] AMBULANCE PER SERVICE SERVICE STATUTE MILE ECG 81209 [facility] R[facility]INE [facility] W/LEAST P 12 LDS I&R ONLY URNLS DIP 26481 [facility]SON 5 [facility] STICK/TAB INC INC [place] [address] [facility] TROPONIN 5 [facility] QUANTITAT INC INC DIEUDONNE BLOOD 23262 [facility] COUNT 5 [facility] COMPLETE INC INC AUTO&AUTO DIFRNTL WBC COMPREHEN 63346 [facility] SIVE 5 [facility] METABOLIC INC INC PANEL CREATINE 96611 [facility] KINASE MB 5 [facility] FRACTION INC INC ONLY COMPREHEN 04224 [facility] SIVE 5 [facility] METABOLIC INC INC PANEL BLOOD 71754 [facility] COUNT 5 [facility] COMPLETE INC INC AUTO&AUTO DIFRNTL WBC RADIOLOGI 60163 [facility] Garcia EXAM 5 [facility] CHEST 2 INC INC VIEWS FRONTAL&L ATERAL PRESSURIZ 98044 [facility] ED/NONPRE 5 [facility] SSURIZED INC INC INHALATIO N TREATMENT FIBRIN 59085 [facility] DGRADJ 5 [facility] PRODUCTS INC INC D-DIMER QUAL/SEMI JASPREET THER 18736 [facility] PROPH/DX 5 [facility] NJX IV INC INC PUSH SINGLE/1S T SBST/DRUG URINE 36986 [facility] 5 PHYSICIAN ZACHARIAH TEST S GROUP VISUAL COLOR CMPRSN METHS COLLECTIO 17264 [facility] [place] VENOUS 5 [facility] BLOOD INC INC VENIPUNCT URE GONADOTRO 57462 [facility] PIN 5 [facility] CHORIONIC INC INC QUALITATI VE OPHTH 71779 [facility] 5 GRE GRE XM&EVAL COMPRE NEW PT 1/> VST BASIC 41013 [facility] METABOLIC 5 [facility] PANEL INC INC CALCIUM TOTAL COLLECTIO 18136 [facility] [place] VENOUS 5 [facility] BLOOD INC INC VENIPUNCT URE UNCLASSIF J3490 [facility] IED DRUGS 5 [facility] INC INC OBSERVATI 12680 [facility] 5 CARE EZIO DISCHARGE ASSOCIATE S MANAGEMEN T BLOOD 12659 [facility] COUNT 5 [facility] COMPLETE INC INC AUTO&AUTO DIFRNTL WBC HOSPITAL G0378 [facility] OBSERVATI 5 [facility] ON INC INC SERVICE PER HOUR PRESSURIZ 49730 [facility] ED/NONPRE 5 [facility] SSURIZED INC INC INHALATIO N TREATMENT NONINVASI 18324 [facility] VE 5 [facility] EAR/PULSE INC INC OXIMETRY SINGLE DETER THERAPEUT 65711 [facility] IC 5 [facility] INJECTION INC INC IV PUSH EACH NEW DRUG NONINVASI 75039 [facility] VE 5 [facility] EAR/PULSE INC INC OXIMETRY SINGLE DETER SMR PRIM 17433 [facility] SRC 5 [facility] GRAM/GIEM INC INC SA STAIN BCT FUNGI/DHAVAL L BLOOD 20995 [facility] COUNT 5 [facility] COMPLETE INC INC AUTO&AUTO DIFRNTL WBC PRESSURIZ 75159 [facility] ED/NONPRE 5 [facility] SSURIZED INC INC INHALATIO N TREATMENT HOSPITAL G0378 [facility] OBSERVATI 5 [facility] [place] [address] [facility] INFUSION 5 [facility] THERAPY/P INC INC ROPHYLAXI S /DX 1ST TO 1 HR UNCLASSIF J3490 [facility] IED DRUGS 5 [facility] INC INC BASIC 55486 [facility] METABOLIC 5 [facility] PANEL INC INC CALCIUM TOTAL INITIAL 31682 [facility] OBSERVATI 5 CARE EZIO ON ASSOCIATE CARE/DAY S 50 MINUTES INJECTION J2405 [facility] 5 [facility] ONDANSETR INC INC ON HCL PER 1 MG COLLECTIO 90071 [facility] N VENOUS 5 [facility] BLOOD INC INC VENIPUNCT URE INJECTION J0456 [facility] 5 [facility] AZITHROMY INC INC MATT 500 MG CUL BACT 90183 [facility] XCPT 5 [facility] URINE INC INC BLOOD/STO OL AEROBIC ISOL COMPREHEN 94227 [facility] SIVE 5 [facility] METABOLIC INC INC PANEL UNCLASSIF J3490 [facility] IED DRUGS 5 [facility] INC INC AMB A0427 [facility]ORY [facility] SERVICE 5 AMBULANCE AMBULANCE ALS SERVICE SERVICE EMERGENCY TRANSPORT LEVEL 1 GONADOTRO 75452 [facility] PIN 5 [facility] CHORIONIC INC INC QUALITATI VE BLOOD 03292 [facility] COUNT 5 [facility] COMPLETE INC INC AUTO&AUTO DIFRNTL WBC CULTURE 98308 [facility] BACTERIAL 5 [facility] BLOOD INC INC AEROBIC W/ID ISOLATES GROUND A0425 [facility] PER SERVICE SERVICE STATUTE [facility] RADIOLOGI 69134 [facility] C EXAM 5 [facility] CHEST 2 INC INC VIEWS FRONTAL&L ATERAL PRESSURIZ 21547 [facility] ED/NONPRE 5 [facility] SSURIZED INC INC INHALATIO N TREATMENT THERAPEUT 01164 [facility] TOM IC 5 PHYSICIAN ZACHARIAH PROPHYLAC S GROUP TIC/DX INJECTION SUBQ/IM NEURAXIAL 86135 [facility] KOTHAR[facility] JORGE LABOR 4 ANESTH ANALG/ANE OF THE S PLND BLUE VAGINAL DELIVERY VAGINAL 19105 [facility] TOM DELIVERY 4 PHYSICIAN ZACHARIAH ONLY S GROUP W/POSTPAR FEMI CARE REPAIR OF 7569 [facility] OTHER 4 [facility] CURRENT INC INC OBSTETRIC LACERATIO N CUL BACT 49955 COMBINED COMBINED XCPT 4 PHYSICIAN PHYSICIAN URINE S LA S LA BLOOD/STO OL AEROBIC ISOL 66841 [facility] SANTOS NONSTRESS 4 PHYSICIAN ZACHARIAH TEST S GROUP DOPPLER 99089 [facility] SANTOS VELOCIMET 4 PHYSICIAN ZACHARIAH RY S GROUP UMBILICAL ARTERY 41471 [facility] BIOPHYSIC 4 PHYSICIAN ZACHARIAH AL S GROUP PROFILE W/O NON-STRES S TESTING US PREG 93987 [facility] UTERUS 4 PHYSICIAN ZACHARIAH REAL TIME S GROUP F/U TRNSABDL PER FETUS US PREG 00755 [facility] UTERUS 4 PHYSICIAN ZACHARIAH REAL TIME S GROUP F/U TRNSABDL PER FETUS 97986 [facility] TOM BIOPHYSIC 4 PHYSICIAN ZACHARIAH AL S GROUP PROFILE W/O NON-STRES S TESTING DOPPLER 96373 [facility] S[facility] VELOCIMET 4 PHYSICIAN ZACHARIAH RY S GROUP UMBILICAL ARTERY THERAPEUT 58089 [facility] IC 4 [facility] PROPHYLAC INC INC TIC/DX INJECTION SUBQ/IM 87902 [facility] NONSTRESS 4 [facility] [place] [address] [facility] INFUSION 4 [facility] THERAPY/P INC INC ROPHYLAXI S /DX 1ST TO 1 HR URNLS DIP 93359 [facility] 4 [facility] STICK/TAB INC INC LET REAGENT AUTO MICROSCOP Y CULTURE 50695 [facility] JONES BACTERIAL 4 [facility] LABORATOR INC IES QUANTTATI VE COLONY COUNT URINE FIBRIN 38766 [facility] DGRADJ 4 [facility] PRODUCTS INC INC D-DIMER QUAL/SEMI JASPREET BLOOD 38726 [facility] COUNT 4 [facility] COMPLETE INC INC AUTO&AUTO DIFRNTL WBC PRESSURIZ 30570 [facility] ED/NONPRE 4 [facility] SSURIZED INC INC INHALATIO N TREATMENT ECHO 82005 [facility] 4 MEDICAL 2D SERV W/WOM-MOD FOUNDATIO E COMPL N SPEC&COLR D RADIOLOGI 82991 [facility] C EXAM 4 MEDICAL BREEZY CHEST 2 IMAGING VIEWS ASS FRONTAL&L ATERAL COMPREHEN 85290 [facility] SIVE 4 [facility] METABOLIC INC INC PANEL US PREG 35834 TOM SANTOS UTERUS 4 [facility] AFTER 1ST TRIMEST / GESTATION US PREG 27856 SANTOS SANTOS UTERUS 4 [place] [place] AFTER 1ST TRIMEST GESTATION [place] PREG 67225 SANTOSEugenia SANTOS UTERUS 4 [place] [place] REAL TIME W/IMAGE DCMTN TRANSVAG CYTP C/V 34748 PICKLESIM PICKLESIM AUTO THIN 4 ER JR CHEVY ER JR CHEVY LYR PREPJ SCR MNL RESCR PHYS IADNA 39449 PICKLESIM PICKLESIM CHLAMYDIA 4 ER JR CHEVY ER JR CHEVY TRACHOMAT IS AMPLIFIED PROBE TQ URINE 49548 TOM SANTOS 4 [facility] TEST VISUAL COLOR CMPRSN METHS IADNA 17155 PICKLESIM PICKLESIM NEISSERIA 4 ER JR CHEVY ER JR CHEVY GONORRHOE AE AMPLIFIED PROBE TQ INJECTION J2405 [facility] ONDANSETR INC INC ON HCL PER 1 MG COMPREHEN 85719 [facility] SIVE 4 [facility] METABOLIC INC INC PANEL URINE 95887 [facility] 4 [facility] TEST INC INC VISUAL COLOR CMPRSN METHS GONADOTRO 80943 [facility] PIN 4 [facility] CHORIONIC [place] [address] [facility] INFUSION 4 [facility] THERAPY/P INC INC ROPHYLAXI S /DX 1ST TO 1 HR THERAPEUT 17072 [facility] IC 4 [facility] INJECTION INC INC IV PUSH EACH NEW DRUG PRESSURIZ 78691 [facility] ED/NONPRE 4 [facility] SSURIZED INC INC INHALATIO N TREATMENT BLOOD 18257 [facility] COUNT 4 [facility] COMPLETE INC INC AUTO&AUTO DIFRNTL WBC URNLS DIP 62147 [facility] 4 [facility] STICK/TAB INC INC LET REAGENT AUTO MICROSCOP Y CONTRACEP A4267 [facility] DEPT CONDOM [place] EACH URINE 86095 [facility] TEST [facility]TH DEPT HLTH DEPT VISUAL [place] COLOR CMPRSN METHS IAADIADOO 02989 [facility] ESPINO[facility], 8 [facility] Encounters Encounter Start End Date Code Location Performer Type Date HOSPITAL [facility] - 7 7 [facility] OUTPATIEN INC T OFFICE 02802 [facility] TOM NARAYANANEN 7 7 PHYSICIAN T VISIT S GROUP 15 MINUTES OFFICE [id number] [facility] TOM OUTPATIEN 7 7 PHYSICIAN T VISIT S GROUP 15 MINUTES HOSPITAL [facility] - 7 7 [facility] OUTPATIEN INC T EMERGENCY 27041 [facility] DEPT 7 7 [facility] VISIT INC HIGH SEVERITY& THREAT FUNCJ OFFICE 36224 [facility] SANTOS OUTPATIEN 7 7 PHYSICIAN T VISIT S GROUP 15 MINUTES OFFICE 59051 [facility] OUTKYLE 7 7 [facility] T VISIT 5 INC MINUTES HOSPITAL [facility] T OFFICE [id number] [facility] TOM OUTPATIEN 7 7 PHYSICIAN T VISIT S GROUP 25 MINUTES [facility] 6 6 [facility] T EMERGENCY 06555 [facility] 6 6 [facility] DEPARTMEN INC T VISIT LIMITED/M INOR PROB EMERGENCY 93198 JOSESITO MOLINA 6 6 PHYSICIAN PANCHITO DOE S, [facility] T VISIT MODERATE SEVERITY OFFICE [id number] [facility] TOM OUTPATIEN 6 6 PHYSICIAN [place] T VISIT S GROUP MINUTES OFFICE 47604 [facility] 6 [facility] T VISIT [facility] DEPT [facility] DEPT 10 [facility] 6 6 [facility] T OFFICE 23934 [facility] BR[facility] OUTPATIELIEZER 6 6 PHYSICIAN STONE T NEW 30 S GROUP [facility] 6 [facility] T EMERGENCY 60815 JOSESITO MOLINA 6 6 PHYSICIAN PANCHITO DOE S, [facility] T VISIT MODERATE SEVERITY EMERGENCY 17551 [facility] 6 6 [facility] DEPARTMEN [facility] T VISIT LOW/MODER SEVERITY EMERGENCY 85825 JOSESITO HUITRON DEPT 5 5 PHYSICIAN BOOGIE VISIT S, [facility] HIGH SEVERITY& THREAT [facility] - 5 5 [facility] OUTPATIEN [facility] T EMERGENCY 03317 [facility] 5 5 [facility] T VISIT HIGH/URGE NT SEVERITY EMERGENCY 71694 JOSESITO CLEMONS DEPT 5 5 PHYSICIAN FOR VISIT S, [facility] HIGH SEVERITY& THREAT [facility] EMERGENCY 94869 [facility] 5 5 [facility] T VISIT MODERATE SEVERITY [facility] 5 5 [facility] T OFFICE 75350 [facility] TOM OUTPATIEN 5 5 PHYSICIAN [place] T VISIT S GROUP 15 MINUTES HOSPITAL [facility] 5 5 [facility] T EMERGENCY 94823 [facility] 5 5 [facility] T VISIT LOW/MODER SEVERITY EMERGENCY 37997 JOSESITO TAVAREZ 5 5 PHYSICIAN [facility] T VISIT MODERATE SEVERITY [facility]OSP[facility] 5 5 [facility] T OFFICE 24537 [facility] OUTPATIEN 5 5 [facility]ARE EZ[facility] T VISIT ASSOCIATE 15 S MINUTES EMERGENCY 66591 [facility] HIGH/URGE NT SEVERITY [facility] - 5 5 [facility] OUTPATIEN INC T EMERGENCY 73716 [facility] 5 5 [facility] DEPARTMEN INC T VISIT MODERATE SEVERITY [facility]OSP[facility] - 4 4 [facility] INPATIENT INC OFFICE 16719 [facility] S[facility] OUTPATIEN 4 4 PHYSICIAN [place] T VISIT S GROUP 15 MINUTES OFFICE 41576 [facility] OUTPATIEN 4 4 PHYSICIAN [place] T VISIT S GROUP 15 MINUTES OFFICE 47507 [facility] OUTPATIEN 4 4 PHYSICIAN [place] T VISIT S GROUP 15 MINUTES OFFICE 02729 [facility] OUTPATIEN 4 4 PHYSICIAN [place] T VISIT S GROUP 15 MINUTES [facility]OSP[facility] - 4 4 [facility] - 4 4 [facility] T OFFICE 94698 [facility] OUTPATIEN 4 4 [place] [facility] T VISIT 15 MINUTES EMERGENCY 56834 [facility] DEPT 4 4 ARUN VISIT EMERGENCY HIGH PHYS SEVERITY& THREAT [facility] - 4 4 [facility] T EMERGENCY 72005 [facility] 4 4 [facility] DEPARTMEN INC T VISIT LOW/MODER SEVERITY OFFICE 73267 [facility] OUTPATIEN 4 4 [place] T VISIT 15 MINUTES OFFICE 54404 [facility] OUTPATIEN 4 4 [place] T VISIT 25 MINUTES EMERGENCY 89356 [facility] 4 4 [facility] DEPARTMEN INC T VISIT MODERATE SEVERITY [facility]OSP[facility] - 4 4 [facility] T OFFICE 76288 [facility] OUTPATIEN [address] DEPT [facility] DEPT MINUTES [facility] - 3 3 [facility] INPATIENT INC EMERGENCY 69047 [facility] 2 2 [facility] DEPARTMEN INC T VISIT LIMITED/M INOR [facility] - 2 2 [facility] T OFFICE 25441 [facility] PATEL 8 8 MEDICAL LORIE R T VISIT CLINIC 25 MINUTES EMERGENCY 74157 [facility] 8 8 [facility] EMERGENCY T VISIT PHYS INC MODERATE SEVERITY HOSPITAL [facility] - 8 8 [facility] T [facility]ENCY 25884 [facility] 8 8 [facility] T VISIT LOW/MODER SEVERITY OFFICE 54384 THEA PATEL 8 8 MEDICAL L[facility] T VISIT CLINIC 15 MINUTES OFFICE 68929 [facility] PATEL 8 8 MEDICAL [facility] T VISIT CLINIC 15 MINUTES OFFICE 30186 [facility] PAT[facility] 8 8 MEDICAL [facility] T VISIT CLINIC 15 MINUTES OFFICE 20608 THE[facility] TIM 8 8 MEDICAL HUGO [facility] T VISIT CLINIC 15 MINUTES
[2016-10-03] MEDS ORDERED: AMOXICILLIN 50500 MG PO (19:25)
--- NOTE | 2016-10-03 19:26 | Urgent Treatment Center Report ---
History of Present Issue Date/Time Seen by Provider 10/03/161908 Visit Reason Pt arrived:Walked Presenting Problem:PT STATES CONGESTION AND RIGHT EAR PAIN FOR TWO DAYS Location if Accident: Onset of symptoms date/time:/ or onset unknown for:MEDICAL HX UNKNOWN Have you (or family members/close friends) recently traveled outside the [place]? N If Yes, where/when: Have you had exposure to infectious disease within the past month? TB? Other? Specify: Patient states that she has been having sinus congestion and pain in her right ear for 2 days states that pain in ear has got worse today. State that she is having clear/yellow mucous from her nose. States that right ear hurts and feels like it is full. States that she is 27 weeks OB ALLERGIES Coded Allergies: No Known Allergies (02/27/16) Home Medications Reported Medications Albuterol Sulfate (Ventolin Hfa) 0.09 MG IH #18 VIT37/IRON/FOLIC ACID (Prenata Chewable Tablet) 1 CTB PO DAILY History Medical History General CAD? No Angina: No [place]: No Hypertension? No Hyperlipidemia? No CHF? No DVT? No PE? No COPD? No Asthma? Yes Anemia? No GERD? No Gastric ulcers? No GI Bleed? No Hernia? Yes Thyroid Problems? No Hypothyroidism? No CVA? No Seizures? No Diabetes? No Insulin Dependent: No Insulin Pump: No Home FSBS? No Renal Insuffiency? No UTI? No Stones? No BPH? No GB Disease: No Nephritic Syndrome? No Asplenia? No Hepatitis? No Sickle Cell Disease? No Arthritis? No Migraines? No Cataracts? No Glaucoma? No MRSA? No HIV? No TB? No Anxiety? No Depression? No Cancer? No More? 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 Physical Exam Vital Signs Vital Signs Date Time Temp Pulse Resp B/P Pulse O2 O2 Flow FiO2 Ox Delivery Rate 10/03 1900 98.9 95 18 101/64 97 General Appearance Patient appears ill sitting on exam table holding her hand over right ear Ear, Nose, Throat right ear red, tm buldging, nare red irritated no tenderness noted Respiratory Status Yes: trachea midline, chest symmetrical, non tender chest. No: respiratory distress. Cardiovascular normal exam, regular rate/rhythm, no peripheral edema, no gallop Neurologic alert, ergonomics consultant II-XII nml as tested, normal exam, no motor/sensory deficits, oriented x 3 Medical Decision Making LABS/Meds/Orders Pt receiving controlled substance in ED? No Progress [facility] Progress Notes Date 10/03/16 Comment Patient educated on the use of antibiotics and . Patient educated that amoxicillin is comonly prescribed as treatment for otitis media and that is considered class B. Paged Pharmacist traffic controller cable Randyana paula McgrathZepeda, discussed use of Amoxicillin and he agreed Amoxicillin 500mg TID for 10 days Departure Departure Time of Disposition 1924 Disposition DC Home or Self Care(routine) Clinical Impression Primary Impression: Otitis media Qualifiers: Otitis media type: unspecified Chronicity: unspecified Laterality: right Qualified Code: H66.91 - Otitis media, unspecified, right ear Condition STABLE Referrals Cory GONZALEZ,Rene Manzano MD,Eh Cota (Family): 3 Days-Call Office if no improvement in symptoms Patient Instructions DI for Otitis Media (Middle Ear Infection)-Child Additional Instructions * Monitor Temp. Tylenol and/or Ibuprofen as needed. ER if fever is no less than 101 despite alternating Tylenol and Ibuprofen * Encourage fluids, water, Gatorade, powerade, pedialyte if infant/toddler/or child * Warm salt water gargles for throat irritation *Warm fluids *Sore throat lozenges *Sleep elevated Discharge Counseling Counseled pt/family regarding diagnosis, medications/RX, home care, follow up needs Prescriptions Current Visit Scripts Amoxicillin Trihydrate (Amoxicillin 500MG) 500 MG PO TID #30 CAP at 1926
--- NOTE | 2016-10-03 19:26 | Urgent Treatment Center Report ---
History of Present Issue Date/Time Seen by Provider 10/03/161908 Visit Reason Pt arrived:Walked Presenting Problem:PT STATES CONGESTION AND RIGHT EAR PAIN FOR TWO DAYS Location if Accident: Onset of symptoms date/time:/ or onset unknown for:MEDICAL HX UNKNOWN Have you (or family members/close friends) recently traveled outside the [place]? N If Yes, where/when: Have you had exposure to infectious disease within the past month? TB? Other? Specify: Patient states that she has been having sinus congestion and pain in her right ear for 2 days states that pain in ear has got worse today. State that she is having clear/yellow mucous from her nose. States that right ear hurts and feels like it is full. States that she is 27 weeks OB ALLERGIES Coded Allergies: No Known Allergies (02/27/16) Home Medications Reported Medications Albuterol Sulfate (Ventolin Hfa) 0.09 MG IH #18 VIT37/IRON/FOLIC ACID (Prenata Chewable Tablet) 1 CTB PO DAILY History Medical History General CAD? No Angina: No [place]: No Hypertension? No Hyperlipidemia? No CHF? No DVT? No PE? No COPD? No Asthma? Yes Anemia? No GERD? No Gastric ulcers? No GI Bleed? No Hernia? Yes Thyroid Problems? No Hypothyroidism? No CVA? No Seizures? No Diabetes? No Insulin Dependent: No Insulin Pump: No Home FSBS? No Renal Insuffiency? No UTI? No Stones? No BPH? No GB Disease: No Nephritic Syndrome? No Asplenia? No Hepatitis? No Sickle Cell Disease? No Arthritis? No Migraines? No Cataracts? No Glaucoma? No MRSA? No HIV? No TB? No Anxiety? No Depression? No Cancer? No More? 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 Physical Exam Vital Signs Vital Signs Date Time Temp Pulse Resp B/P Pulse O2 O2 Flow FiO2 Ox Delivery Rate 10/03 1900 98.9 95 18 101/64 97 General Appearance Patient appears ill sitting on exam table holding her hand over right ear Ear, Nose, Throat right ear red, tm buldging, nare red irritated no tenderness noted Respiratory Status Yes: trachea midline, chest symmetrical, non tender chest. No: respiratory distress. Cardiovascular normal exam, regular rate/rhythm, no peripheral edema, no gallop Neurologic alert, hvac technician residential II-XII nml as tested, normal exam, no motor/sensory deficits, oriented x 3 Medical Decision Making LABS/Meds/Orders Pt receiving controlled substance in ED? No Progress [facility] Progress Notes Date 10/03/16 Comment Patient educated on the use of antibiotics and . Patient educated that amoxicillin is comonly prescribed as treatment for otitis media and that is considered class B. Paged Pharmacist new car salesperson Randyana paula McgrathZepeda, discussed use of Amoxicillin and he agreed Amoxicillin 500mg TID for 10 days Departure Departure Time of Disposition 1924 Disposition DC Home or Self Care(routine) Clinical Impression Primary Impression: Otitis media Qualifiers: Otitis media type: unspecified Chronicity: unspecified Laterality: right Qualified Code: H66.91 - Otitis media, unspecified, right ear Condition STABLE Referrals Cory GONZALEZ,Rene Manzano MD,Eh Cota (Family): 3 Days-Call Office if no improvement in symptoms Patient Instructions DI for Otitis Media (Middle Ear Infection)-Child Additional Instructions * Monitor Temp. Tylenol and/or Ibuprofen as needed. ER if fever is no less than 101 despite alternating Tylenol and Ibuprofen * Encourage fluids, water, Gatorade, powerade, pedialyte if infant/toddler/or child * Warm salt water gargles for throat irritation *Warm fluids *Sore throat lozenges *Sleep elevated Discharge Counseling Counseled pt/family regarding diagnosis, medications/RX, home care, follow up needs Prescriptions Current Visit Scripts Amoxicillin Trihydrate (Amoxicillin 500MG) 500 MG PO TID #30 CAP at 1926
[2016-10-03 19:31] VITALS: BP 101/64
== END 2016-10-03 19:32 | disposition home or self-care (01) ==
LOC: UTC 18:50
DX: H66.91 Otitis media, unspecified, right ear (principal)

== ENCOUNTER → 2016-11-18 | Outpatient (CLI) | payer MEDICAID ==
[~2016-11-18] MED LIST changes: +AMOXICILLIN 50500 MG PO
--- NOTE | 2016-11-18 16:02 | RADIOLOGY REPORT PS360 ---
US PREG FOLLOWUP SINGLE FETUS: Indication: Small for gestational age OB US GROWTH ORDERING PHYSICIAN: Rene Ray MD PATIENT AGE: 26 years FINDINGS: There is a single live fetus in the cephalic presentation. heart body motion noted with an FHR of 136 BPM The following parameters are obtained: Average ultrasound age is 32 weeks 2 days. Estimated due date by ultrasound is 01/11/2017. There has been adequate progression compared to the previous ultrasound of 08/19/2016. Estimated weight is 1837 g BPD: 32 weeks 5 days OFD: 33 weeks 3 days HC: 32 weeks 5 days AC: 31 weeks 5 days FL: 31 weeks 5 days heart rate: 136 bpm. HC/AC: 1.07 Cephalic index: 77% FL/BPD: 75% FL/AC: 22% Amniotic fluid index: 7.43 slightly low Qualitative AFV: 2 breathing movements: 2 Gross body movements: 2 Tone: 2 Biophysical profile score: 8/8 Doppler evaluation of the umbilical artery: SD ratio: 2.8 Resistive index: 0.65 No obvious anomalies evident. Placenta: Anterior with a few calcifications. Grade 1-2. No previa IMPRESSION: Live intrauterine gestation in cephalic presentation at 32 weeks 2 days. heart and body motion noted. All parameters correlate. Please see above for detail Biophysical profile is 8 of 8. Amniotic fluid index is slightly low at 7.4 cm. The SD ratio is within normal limits
== END ==
LOC: RAD 09:24
DX: O36.5131 Maternal care for known or suspected placental insufficiency, third trimester, fetus 1 (principal)

== ENCOUNTER 2016-11-19 16:17 | Outpatient (CLI) | payer MEDICAID ==
[~2016-11-19] VITALS: Ht 144.8 cm; Wt 44.5 kg
[2016-11-19 16:33] VITALS: BP 99/56
[2016-11-19 17:03] LABS: URINE BILIRUBIN - DIPSTICK NEGATIVE (NEG); URINE BLOOD NEGATIVE (NEG)
== END 2016-11-19 17:50 | disposition home or self-care (01) ==
LOC: OBOUT 16:17 → OB 16:18 → OBOUT 17:50
PROVIDERS: Obstetrics & Gynecology
DX: O26.893 Other specified pregnancy related conditions, third trimester (principal); Z3A.33 33 weeks gestation of pregnancy

== ENCOUNTER → 2016-11-28 | Outpatient (CLI) | payer MEDICAID | LOC: LAB 18:12 | DX: Z34.80 Encounter for supervision of other normal pregnancy, unspecified trimester (principal) ==

== ENCOUNTER → 2016-12-01 | Outpatient (CLI) | payer MEDICAID ==
--- NOTE | 2016-12-01 14:16 | RADIOLOGY REPORT PS360 ---
US BIOPHYSICAL PROFILE, US PREG FOLLOWUP SINGLE FETUS, SD RATIO UMBILICAL ARTERY, US BIOPHYSICAL PROFILE: Indication: Small for gestational age, evaluate growth SGA, GROWTH ORDERING PHYSICIAN: Rene Ray MD PATIENT AGE: 26 years COMPARISON: 11/18/2016 FINDINGS: Single live fetus in the cephalic presentation. The following parameters are obtained: Average ultrasound age is 32 weeks 6 days. Estimated due date by ultrasound is 01/20/2017. The estimated due date by last menstrual period is 01/01/2017. The estimated due date by the previous ultrasound was 01/11/2017. There has been only minimal growth and progression since the previous ultrasound which was performed 13 days ago with average ultrasound age only progressing 4 days since the exam nearly 2 weeks ago.. Estimated weight is 1956 g BPD: 33 weeks 1 day OFD: 34 weeks 4 days HC: 33 weeks 4 days AC: 32 weeks 1 day FL: 32 weeks 2 days heart rate: 135 bpm. HC/AC: 1.08 Cephalic index: 76% FL/BPD: 76% FL/AC: 22% Amniotic fluid index: 12 cm Qualitative AFV: 2 breathing movements: 2 Gross body movements: 2 Tone: 2 Biophysical profile score: 8/8 Doppler evaluation of the umbilical artery: SD ratio: 2.6 Resistive index: 0.62 No obvious anomalies evident. Placenta: Anterior. No obvious previa. Cervix: Appears closed and measures 5 cm IMPRESSION: There is a live intrauterine gestation with average ultrasound age of 32 weeks 6 days. There has been less than expected progression compared to the previous ultrasound. Symmetric intrauterine growth retardation is considered. Physical profile is 8 of 8 with average amniotic fluid index an unremarkable as the ratio of the umbilical artery.
== END ==
LOC: RAD 09:54
DX: O36.5131 Maternal care for known or suspected placental insufficiency, third trimester, fetus 1 (principal)

== ENCOUNTER 2016-12-22 20:11 | Outpatient (CLI) | payer MEDICAID ==
[~2016-12-22] VITALS: Ht 144.8 cm; Wt 47.6 kg
[2016-12-22 20:00] VITALS: BP 110/67
[2016-12-22] MEDS ORDERED: PROZAC10 MG PO (20:57)
[2016-12-22 21:31] LABS: URINE BILIRUBIN - DIPSTICK NEGATIVE (NEG); URINE BLOOD NEGATIVE (NEG)
== END 2016-12-22 21:50 ==
LOC: OBOUT 20:11 → OB 20:11 → OBOUT 21:50
PROVIDERS: Obstetrics & Gynecology
DX: O26.93 Pregnancy related conditions, unspecified, third trimester (principal); Z3A.35 35 weeks gestation of pregnancy; R10.9 Unspecified abdominal pain

== ENCOUNTER 2016-12-26 02:57 | Inpatient (IN) | payer MEDICAID ==
[~2016-12-26] VITALS: Ht 160 cm; Wt 48.1 kg
[~2016-12-26 02:57] MED LIST changes: +PROZAC10 MG PO
[2016-12-26 05:36] VITALS: BP 104/71
[2016-12-26 05:42] LABS: LYMPH # 2.2 K/mm3 (0.7-4.5); LYMPH % 17.9 % (10-50.0)
[2016-12-26 05:47] LABS: HEMOGLOBIN 10.5 g/dL (12.2-16.2)
[2016-12-26 06:12] LABS: ABO BLOOD TYPE B; RH BLOOD TYPE POSITIVE
[2016-12-26 07:15] VITALS: BP 102/68
--- NOTE | 2016-12-26 07:27 | LABOR NOTE ---
Laboring Subjective Subjective Date 12/26/16 Time 0726 Subjective: Pt is having regular contractions Laboring Objective Objective NST: Reactive Contractions: q 2-3 minutes Cervical dilation: 3 Effacement: 75% Station: -1 Membranes are: Artificially ruptured (with clear fluid) Fetus monitoring? Yes Type: External Laboring Assessment Assessment Progressing? Yes Cephalopelvic disproportion? No Problem List: 1. Normal delivery Laboring Plan Plan Anethesia for epidural? No Continue to labor down? Yes Plan for ? No Continue to monitor? Yes Start pushing? No at 1808
--- NOTE | 2016-12-26 09:54 | LABOR NOTE ---
Laboring Subjective Subjective Date 12/26/16 Time 0952 Subjective: Pt is having regular contractions Laboring Objective Objective NST: Reactive Contractions: q 2-3 minutes Cervical dilation: 6 Effacement: 100% Station: 0 Membranes are: Artificially ruptured (with clear fluid) Fetus monitoring? Yes Type: External Laboring Assessment Assessment Progressing? Yes Cephalopelvic disproportion? No Problem List: 1. Normal delivery Laboring Plan Plan Anethesia for epidural? Yes Continue to labor down? Yes Plan for ? No Continue to monitor? Yes Start pushing? No at [phone]
--- NOTE | 2016-12-26 11:37 | Delivery Note ---
Delivery note Delivery date: 12/26/16 Delivery time: 112 Anesthesia: Killian Santiago, epidural Was labor medically induced? Yes Method for inducing labor: Oxytocin Gestational age in weeks: 39 weeks Days: 1 day Delivery prior to 39 weeks? No Sex: female score at one minute: 9 at 5 minutes: 9 Type of suction: bulb AF: Clear fluid LAC or MLE: LAC (1st degree) Delivery procedure: Normal Delivery Delivery of placenta: spontaneous Clinical note She is a 26-year-old 3 para 2 who is 39 and 1 weeks gestational age. She 's been followed for a small for gestational age and as result of that we elected to bring her in for delivery at term. She was started on IV oxytocin and was found be 3 cm dilated. She had her membranes ruptured and under labor epidural progressed to full dilation. She delivered spontaneously a liveborn female child at 11:22 AM on the morning of December 26, 2016. The baby had Apgars of 9 at 1 minute and 9 at 5 minutes. On delivery the head the anterior shoulder then delivered followed by the rest of the 's body atraumatically. The baby cried spontaneously. The oropharynx and nasal fracture bulb suction. We allowed the chorda continue to pulsate for approximately 45 seconds. The cord was then doubly clamped and cut. The infant was then placed on the mother's abdomen for further care were nurses assigned Apgars of 9 at 1 minute and 9 at 5 minutes. We then obtained cord blood as well as cord pH. The pH is currently pending. Using gentle traction on the cord and countertraction on the fundus I was able to easily deliver the placenta intact. It had a normal three-vessel cord. She had a small first-degree perineal laceration that was repaired with 3-0 Vicryl Rapide suture to the superficial tissues and 2-0 Vicryl to the deep tissues. She has a positive blood, she is relatively immune and was group B streptococcus positive. She did receive IV antibiotics while in labor. Estimated blood loss was approximately 400 mL. Her oil field rig builder is Dr. Gee. at [phone]
[2016-12-26 11:51] LABS: URINE BILIRUBIN - DIPSTICK NEGATIVE (NEG); URINE BLOOD NEGATIVE (NEG)
[2016-12-26 11:59] LABS: URINE SQUAMOUS CELLS OCC #/hpf (0-5)
[2016-12-26 22:12] VITALS: BP 101/72
[2016-12-27 07:49] VITALS: BP 108/67
--- NOTE | 2016-12-27 07:50 | ACUTE CARE PROGRESS NOTE (QUA) ---
Progress Notes Subjective Date 12/27/16 Time 0748 Note She continues to do very well. She is eating and drinking and ambulating. She is bottlefeeding. Her lochia is normal. Patient/family reports: feeling better, no complaints Objective Findings Last VS-Temp:98.3 B/P:101/72 Pulse:65 Resp:17 SaO2: Last weight lbs:106 oz:0 K.081 Method:Floor Scales Laboratory Tests 12/26/16 1130: Cord Blood pH 7.36 12/26/16 1100: Urine Color STRAW, Urine Appearance CLEAR, Urine pH 7.5, Ur Specific Murphy <= 1.005, Urine Protein NEGATIVE, Urine Ketones NEGATIVE, Urine Blood NEGATIVE, Urine Nitrate NEGATIVE, Urine Bilirubin NEGATIVE, Urine Urobilinogen 0.2, Ur Leukocyte Esterase NEGATIVE, Urine RBC NONE, Urine WBC NONE, Ur Squamous Epith Cells OCC, Urine Bacteria NONE, Urine Glucose NEGATIVE Exam General appearance: normal appearance, alert, awake, no acute distress Reviewed: vital signs, lab results Assessment/Plan Problem List 1. Normal delivery Patient condition Improving, Stable Plan: continue current care This inpt stay is expected to cross 2 MNs from start of care Yes Comments: She is doing very well and we will plan to send her home tomorrow. at 0782
[2016-12-27 08:11] LABS: HEMOGLOBIN 8.8 g/dL (12.2-16.2)
[2016-12-28] MEDS ORDERED: MOTRIN 400MG.400 MG PO (07:31)
[2016-12-28 07:50] VITALS: BP 109/68
--- NOTE | 2016-12-28 11:26 | ACUTE CARE PROGRESS NOTE (QUA) ---
Progress Notes Subjective Date 12/28/16 Time 0720 Note She is doing well this morning. We'll plan to send her home today. Patient/family reports: feeling better, no complaints Objective Findings Last VS-Temp:98.3 B/P:109/68 Pulse:104 Resp:18 SaO2: Last weight lbs:106 oz:0 K.081 Method:Floor Scales Exam General appearance: normal appearance, alert, awake, no acute distress Reviewed: vital signs, lab results Assessment/Plan Problem List 1. Normal delivery Patient condition Improving, Stable Plan: continue current care, initiate discharge plan This inpt stay is expected to cross 2 MNs from start of care Yes Comments: She is doing very well today. We'll plan to send her home today. at 1128
--- NOTE | 2016-12-28 11:33 | Discharge Summary ---
Discharge Summary Admission date: 12/26/16 Discharge date: 12/28/16 Discharge diagnoses: Term , small for gestational age , spontaneous vaginal delivery Clinical note: She is a 26-year-old 3 now para 3 who was 39 weeks gestational age. She is known to have a small for gestational age infant and as result of that was offered augmentation of labor. Course in hospital: She had her membranes ruptured and under labor epidural progressed to full dilation. She delivered spontaneously a liveborn female child at 11:22 AM on the morning of December 26, 2016. The baby weighed 5 lbs. 15 oz. with Apgars of 9 at 1 minute and 9 at 5 minutes. She has done well and has remained afebrile third hospitalization. She is eating and drinking and ambulating. She is breast-feeding. Her lochia is normal. She has B positive blood, she is rubella immune and was group B streptococcus positive. She did receive IV antibiotics while in labor. Her food bagging machine operator is Dr. Gee. Laboratory Tests 12/26/16 0530: WBC 12.3, RBC 4.17, MCV 77.7, RDW 14.5, Plt Count 141, MPV 9.2, Gran % 76.8, Gran # 9.4, Lymphocytes % 17.9, Monocytes % 4.2, Eosinophils % 0.7, Basophils % 0.3, Lymphocytes # 2.2, Monocytes # 0.5, Eosinophils # 0.1, Basophils # 0.0, PUBS MCHC 32.6, Antibody Screen NEGATIVE, Miscellaneous Test POSITIVE 12/26/16 0530: MCH 25.3 12/26/16 1100: Urine Color STRAW, Urine Appearance CLEAR, Urine pH 7.5, Ur Specific Minter <= 1.005, Urine Protein NEGATIVE, Urine Ketones NEGATIVE, Urine Blood NEGATIVE, Urine Nitrate NEGATIVE, Urine Bilirubin NEGATIVE, Urine Urobilinogen 0.2, Ur Leukocyte Esterase NEGATIVE, Urine RBC NONE, Urine WBC NONE, Ur Squamous Epith Cells OCC, Urine Bacteria NONE, Urine Glucose NEGATIVE 12/26/16 1130: Cord Blood pH 7.36 12/27/16 0730: Hgb 8.8, Hct 27.8 Plans for ongoing care: She is discharged home to follow-up with me in approximately 2 weeks' time. Discharge medications She will continue with her vitamins and iron. She is given a prescription for Motrin 400 mg, 40 tablets. DC/follow-up instructions She was given the usual instructions with respect to limiting her activity, driving and sexual activity. Condition at discharge Stable and improved at 1133
== END 2016-12-28 11:50 | disposition home or self-care (01) | DRG 775 ==
LOC: OB 02:57
PROVIDERS: Nurse Practitioner Obstetrics & Gynecology
PROC: 0HQ9XZZ Repair Perineum Skin, External Approach (ICD-10-PCS; principal; 2016-12-28)
PROC: 10E0XZZ Delivery of Products of Conception, External Approach (ICD-10-PCS; principal; 2016-12-28)
DX: O70.0 First degree perineal laceration during delivery (principal); O36.5930 Maternal care for other known or suspected poor fetal growth, third trimester, not applicable or unspecified; Z3A.39 39 weeks gestation of pregnancy; Z37.0 Single live birth
CPT/HCPCS: J0290

== ENCOUNTER → 2017-02-13 | Outpatient (CLI) | payer MEDICAID ==
[2017-02-13 09:44] LABS: LYMPH % 27.9 % (10-50.0)
[2017-02-13 09:52] LABS: HEMOGLOBIN 12.4 g/dL (12.2-16.2)
[2017-02-13 12:38] LABS: BUN 11 mg/dL (7-18)
[2017-02-13 12:41] LABS: GFR (ESTIMATED) 102 ML/MIN (59-)
== END ==
LOC: LAB 09:18
PROVIDERS: Nurse Practitioner Obstetrics & Gynecology
DX: Z30.09 Encounter for other general counseling and advice on contraception (principal); Z01.812 Encounter for preprocedural laboratory examination

== ENCOUNTER 2017-02-15 06:14 | Day surgery (SDC) | payer MEDICAID ==
[~2017-02-15] VITALS: Ht 152.4 cm; Wt 43.1 kg
--- NOTE | 2017-02-15 08:12 | Operative Note ---
Procedure/Operative Record Procedure Date of procedure: 02/15/17 Pre-Op Dx: Desire for sterilization Post-Op Dx: Desire for sterilization Procedure performed: Laparoscopic bilateral salpingectomy Surgeon: Dr. Rene Ray Chiropractor Sole Practitioner(s): None Anesthesia: Killian Santiago EBL (ml): 25 Clinical note: She is a 26-year-old 2 para 2 lady who expressed desire for sterilization the risks and benefits as well as the irreversibility of bilateral salpingectomy were discussed with the patient prior to surgery. Operative findings: She had a normal-appearing uterus that was somewhat bulky still. The pelvis appeared otherwise normal. There was some blood in the pelvis but she was having her period. Appendix was seen and appeared normal. Upper abdomen was seen appeared normal. The bladder flap was seen and appeared normal. Operative note: She was taken to the operating room where general anesthesia was found be adequate. She was prepped and draped in the normal sterile fashion in the semi- lithotomy position. A weighted speculum was placed in the vagina and the anterior lip of the cervix was grasped with a tenaculum. I then inserted a Yesika uterine manipulator and insufflated the balloon. I then changed gloves and turned my attention to the laparoscopic portion of the surgery. I injected 10 mL of 0.5 percent ropivacaine around the umbilicus and made a small incision within the umbilicus. A Veress needle was then inserted into the abdominal cavity. The abdominal cavity was then insufflated with carbon dioxide gas to a pressure of 20 mmHg. I then inserted a 5 mm trocar under direct vision. I injected through and through the pubic hairline, made a small incision here and inserted an 8 mm trocar under direct vision. I then identified the inferior epigastric arteries, went lateral to these and injected through and through with ropivacaine. A small incision was made and a 5 mm trocar was inserted under direct vision. The RIGHT tube was then grasped at the cornua and using cautery I cauterized along the proximal tube proximally for 1 cm. I then cut the tube off close to the cornua. I then grasped the distal end of the RIGHT tube and using harmonic scalpel I cut along the meso salpinx. The tube was then removed through the 8 mm trocar site. This was similarly performed on the patient's LEFT side. I then let the gas out of the abdomen to check for hemostasis. The sites were hemostatic. I injected approximately 20 mL of 0.5 percent ropivacaine into the pelvis. The secondary trochars were then removed under direct vision. The sites were hemostatic. I then let the gas out of the abdomen and remove the primary trocar and camera together. The 8 mm trocar site was then closed deeply with 2-0 Vicryl suture followed by interrupted subcuticular 4-0 Monocryl suture. The 5 mm trocar sites were closed with subcuticular 4-0 Monocryl suture. Sterile dressings were applied. The patient tolerated the procedure well and was taken to the recovery room in excellent condition. All sponge instrument and needle counts were correct. Estimate a blood loss was less than 25 mL. Conplications: None Specimens: Bilateral fallopian tubes. at 0812
--- NOTE | 2017-02-15 08:23 | Anesthesia Record ---
Anesthesia Record Part I Total IV fluids: 400 EBL (ml): 25 Urine Output: 50 B/P: 139/59 % SaO2: 100 Pulse: 85 Resps: 18 Temp: 97.2 Patient is: Stable Stable to PACU at: 0820 at 0822
--- NOTE | 2017-02-15 08:23 | Anesthesia Record ---
Anesthesia Record Part II Discharge time: 0850 Destination: Same day surgery PACU nurse assessment review? Yes Patient is: Stable Anesthesia complications? No at 0894
[2017-02-15 18:21] VITALS: BP 134/79
== END 2017-02-15 10:00 | disposition home or self-care (01) ==
LOC: SDC 06:14
PROVIDERS: Nurse Practitioner Obstetrics & Gynecology
PROC: 0UB74ZZ Excision of Bilateral Fallopian Tubes, Percutaneous Endoscopic Approach (ICD-10-PCS; principal; 2017-02-15 07:30)
DX: Z30.2 Encounter for sterilization (principal); O99.345 Other mental disorders complicating the puerperium; F32.9 Major depressive disorder, single episode, unspecified; O99.53 Diseases of the respiratory system complicating the puerperium; J45.909 Unspecified asthma, uncomplicated; Z79.899 Other long term (current) drug therapy; Z82.5 Family history of asthma and other chronic lower respiratory diseases
CPT/HCPCS: J0131; J2710